=== PATIENT | male | born 1940 | race Caucasian/White ===

== ENCOUNTER 2019-08-12 08:04 | Observation (INO) | payer MEDICARE, SELFPAY ==
[2019-08-12] VITALS (9 sets, daily range): BP systolic 100–219; BP diastolic 50–107; PULSE 51–104; RESP 18–20; TEMP 36.6–37; O2SAT 92–98; BMI 23.3; BMI 22.8
--- NOTE | 2019-08-12 08:09 | RAD_ITS ---
STUDY: X-RAY CHEST REASON FOR EXAM: Male, 79 years old. Syncopal episode. TECHNIQUE: Single AP portable view of the chest. COMPARISON: None. FINDINGS: EKG electrodes are seen. The lungs are clear and expanded. There is no demonstrated pleural abnormality. Normal size heart. Normal mediastinum and florina. Normal visualized pulmonary arteries. There is atherosclerotic calcification of the aortic arch with tortuosity. There are degenerative changes of the visualized thoracic spine. There is degenerative osteoarthritis of the bilateral shoulders. Large hiatal hernia. RAD/Chest 1 View (Portable) IMPRESSION: Large hiatal hernia. Electronically Signed: Curt Finch, at 9:07 EST , Service support ,
--- NOTE | 2019-08-12 08:09 | EKG12_ITS ---
Test Reason : STROKE ALERT Blood Pressure : / mmHG Vent. Rate : 067 BPM Atrial Rate : 067 BPM P-R Int : 122 ms QRS Dur : 102 ms QT Int : 402 ms P-R-T Axes : 066 228 063 degrees QTc Int : 424 ms Normal sinus rhythm Right superior axis deviation Abnormal ECG Confirmed by SABRINA SIN, JULIOCESAR ([id number]), editor publications CLEVE NEVAREZ ([id number]) on 08/15/2019 9:57:18 AM Referred By: Kisha Badillo Confirmed By:TEMO BENNETT MD
--- NOTE | 2019-08-12 08:09 | CT_ITS ---
STUDY: CT BRAIN WITHOUT CONTRAST REASON FOR EXAM: Male, 79 years old. Confusion. History of prior CVA and retinal artery occlusion. RADIATION DOSAGE (If Supplied By Facility): CTDIvol = ( 44.99 ) mGy, DLP = ( 779.24 ) mGycm TECHNIQUE: Transaxial CT imaging of the brain was performed without administration of intravenous contrast material. Individualized dose optimization techniques were used for this CT. COMPARISON: No relevant priors. FINDINGS: Normal soft tissue structures. Normal calvarium. There is mild cerebral atrophy with widening of the extra-axial spaces and ventricular dilatation. There are areas of decreased attenuation within the white matter tracts of the supratentorial brain, consistent with microvascular disease changes. Normal basal ganglia and thalami. Normal brainstem. There is mild cerebellar atrophy. There is no intracranial hemorrhage. There are no findings of an acute ischemic infarction. Atherosclerotic calcification of the cavernous portions of the internal carotid arteries bilaterally. Normal visualized paranasal sinuses. CT/Brain/Head without Contrast IMPRESSION: Chronic involutional changes of the brain. N.B. : The above information has been verbally conveyed by Curt Finch to Dr Sainz on 08/12/2019 08:28:20 (ET). Electronically Signed: Curt Finch, at 8:29 EST , Service support ,
[2019-08-12 08:22] LABS: Absolute Lymphocyte Count 1.38 X10^3/uL (0.83-4.51); Absolute Neutrophil Count 4.8 X10^3/uL (2.0-7.7); Basophil# 0.01 X10^3/uL; Basophil% 0.1 % (0-1); Eosinophil# 0.03 X10^3/uL; Eosinophils% 0.4 % (0-5); Hematocrit 50.2 % (40-54); Hemoglobin 17.2 g/dL (13.0-16.5); Lymphocyte # 1.38 X10^3/ul (4.0); Lymphocyte % 20.6 % (19-41); Mean Corp Hgb Conc 34.3 g/dL (32-36); Mean Corpuscular Volume 96.4 fL (80-94); Mean Platelet Vol. 9.8 fl (6.2-12.0); Monocyte# 0.44 X10^3/uL; Monocyte% 6.6 % (0-10); NRBC Flagged by Analyzer 0 % (0-5); Neutrophil # 4.82 X10^3/uL (2.7-7.7); Platelet Count 248 K/mm3 (150-450); RBC Distribution Width CV 12.9 % (11.6-14.6); RBC Distribution Width SD 45.8 fl (35.1-43.9); Red Blood Count 5.21 M/mm3 (4.6-6.2); White Blood Count 6.7 K/mm3 (4.4-11.0)
[2019-08-12] MEDS: 0.9% Normal Saline 1,000 ML 150 ML IV (08:24)
[2019-08-12 08:31] LABS: Bacteria 0 SEEN /hpf (None Seen); Mucous, Urine 0 SEEN /hpf (<or=2+); Squamous Epithelial Cells - UA 0 SEEN /hpf (0-5); White Blood Cells 0 SEEN /hpf (0-5)
[2019-08-12 08:32] LABS: Color, Urine Yellow (Yellow); Glucose, Dipstick Normal (Normal); Ketone-Dipstick Negative (Negative); Leukocyte Esterase-Dipstick Negative /ul (Negative); Nitrite-Dipstick Negative (Negative); Occult Blood-Urine 10 /ul (Negative); Protein-Dipstick 30 mg/dl (Negative); Urine Bilirubin Dipstick Negative (Negative); Urine Clarity Clear (Clear); Urine Urobilinogen Normal (Normal)
[2019-08-12 08:41] LABS: Anion Gap 12 (5-15); BUN 16 mg/dL (7-18); BUN/Creat Ratio 11.3 RATIO (10-20); Calcium,Total 9.2 mg/dL (8.5-10.1); Chloride 104 mmol/L (98-107); Creatinine, Serum 1.42 mg/dL (0.70-1.30); EST Glomerular Filtration Rate 51 mL/min (>60); Est Glom Filt Rate - Afr Amer 62 mL/min (>60); Estimated Creatinine Clearance 40.73 ml/min; Glucose 129 mg/dL (74-106); Potassium 4.3 mmol/L (3.5-5.1); Sodium Level 140 mmol/L (136-145)
[2019-08-12 08:47] LABS: Red Blood Cells-Urine 0-5 SEEN /hpf (0-5)
--- NOTE | 2019-08-12 08:53 | ED.DCSUM_ITS ---
- ER Visit Summary Date of Service: 08/12/19 Chief Complaint: [Syncope/mental status change] History of Present Illness: The patient is a 79 M [presents to the emergency department via EMS with concern for possible stroke. Events of what happened are unclear other than from what EMS states. Patient apparently was awake and family called the squad because he gasp for air and then had a unresponsive episode. Patient afterwards confused. On arrival patient is awake and alert to person. He does not remember what happened or coming to the emergency department. He denies any focal weakness. He denies any paresthesias. Denies any chest pain. Denies headache. He denies abdominal pain. Patient does have history of TIAs. Initially EMS had concern for possible stroke and a stroke team was called on presentation. Patient was incontinent of urine. No seizure activity noted by EMS.] Physical Examination: [HEENT-PERRLA, EOMI. Cranial nerves II through XII grossly intact. TMs clear. Mucous membranes moist. No adenopathy. Cardiovascular-regular rate and rhythm without murmur or ectopy Lungs-clear to auscultation, chest wall stable without crepitus or subcu emphysema Abdomen-normoactive bowel sounds, soft, nontender, no rebound or rigidity, no peritoneal signs. Neuro shmz-gxkrzs-vv-nose and heel winslow testing within normal limits, negative Romberg, negative pronator, fundi benign. NIH stroke scale was 0. Extremities-intact ?4, normal range of motion, normal pulses, atraumatic] Test Results: [EKG obtained on arrival shows sinus rhythm with a ventricular rate of 67 bpm with no acute ST segment changes. CT scan of the brain showed ch ronic involutional changes otherwise nothing acute. CBC with differential showing a 6.7, hemoglobin 17, hematocrit 50, platelets 248. Chemistries unremarkable. Creatinine is 1.42. Troponin is less than 0.015. Urinalysis normal. Fingerstick blood sugar on arrival was 115.] Emergency Department Course and Treatment: [Results discussed with patient. Kalia triplett is now ANO x3 and mental status changes completely resolved.] Treatment Plan: [Admit] Disposition: [Admit] Impression: [Syncope Mental status change-resolved Renal insufficiency] This note was generated with [employer] (FIG)ation software. It may contain incorrect words, spelling, and punctuation that were not noted in review of the chart prior to signing ED Disposition - Plan for ED Patient: Referrals: Josh Morales MD [Primary Care Provider] -
--- NOTE | 2019-08-12 09:46 | ECHOD_ITS ---
Left Ventricle The estimated ejection fraction is 65 %. Diastolic function is indeterminate. No regional wall motion abnormalities noted. Right Ventricle Normal RV size. Normal systolic function. Atria Normal left atrium. Normal right atrium. No doppler evidence for ASD. Mitral Valve There is no mitral valve stenosis. No mitral valve insufficiency. Tricuspid Valve There is no tricuspid stenosis. Moderate (2+) tricuspid valve insufficiency. Pulmonary artery systolic pressure is 45 mmHg. Aortic Valve Trisinus/trileaflet aortic valve. There is no aortic stenosis. Mild (1+) aortic valve insufficiency. Pulmonic Valve There is no pulmonic valvular stenosis. Trivial pulmonic valve insufficiency. Great Vessels Normal aortic root. Pericardium/Pleural No pericardial effusion. MMode/2D Measurements & Calculations LVIDd: 4.1 cm IVSd: 0.93 cm Ao root diam: 3.6 cm LVIDs: 2.2 cm LVPWd: 0.88 cm RVDd: 3.3 cm FS: 45.8 % LAV(MOD-bp): 39.9 ml LA A4 area: 19.8 cm2 LA dimension(2D): 3.6 cm LAV(MOD-bp) Indexed: 22.4 ml/m2 LAV(MOD-sp2): 24.7 ml LAV(MOD-sp4): 51.8 ml RA A4 area: 16.2 cm2 Time Measurements MV dec time: 0.29 sec Doppler Measurements & Calculations MV E max tong: 75.2 cm/sec Lat Peak E' Tong: 5.5 cm/sec Med Peak E' Tong: 6.5 cm/sec MV A max tong: 111.0 cm/sec E/E' lat: 13.7 E/E' med: 11.6 MV E/A: 0.68 Ao V2 max: 151.2 cm/sec AI max tong: 386.4 cm/sec LV V1 max: 132.7 cm/sec Ao max P.1 mmHg AI max P.7 mmHg LV V1 max P.0 mmHg AI dec slope: 194.3 cm/sec2 AI P1/2t: 582.4 msec PA V2 max: 121.7 cm/sec Interpretation Summary The estimated ejection fraction is 65 %. Diastolic function is indeterminate. Moderate (2+) tricuspid valve insufficiency. Pulmonary artery systolic pressure is 45 mmHg. Mild (1+) aortic valve insufficiency. Ordering Physician: Kisha Badillo Referring Physician: Kisha Badillo
[2019-08-12] MEDS: 0.9% Normal Saline 1,000 ML 125 ML IV ×2 (10:12→18:15)
[2019-08-12 10:21] LABS: Magnesium 2.2 mg/dL (1.6-2.6)
[2019-08-12] MEDS: Enoxaparin 30 MG/0.3 ML Syringe SC (10:40)
[2019-08-12 10:53] LABS: Hemoglobin A1c 5.1 % (4.2-6.3)
--- NOTE | 2019-08-12 12:28 | PCM.HP.STD ---
Problem List (1) Syncope Status: Acute Qualifiers: Syncope type: unspecified Qualified Code(s): R55 - Syncope and collapse (2) Carotid artery disease Status: Chronic Qualifiers: Carotid artery disease type: unspecified Laterality: bilateral Qualified Code(s): I73.9 - Peripheral vascular disease, unspecified (3) TIA (transient ischemic attack) Status: Chronic Qualifiers: Transient cerebral ischemia type: unspecified Qualified Code(s): G45.9 - Transient cerebral ischemic attack, unspecified (4) HLD (hyperlipidemia) Status: Chronic Qualifiers: Hyperlipidemia type: unspecified Qualified Code(s): E78.5 - Hyperlipidemia, unspecified (5) Former tobacco use Status: Resolved (6) Chews tobacco Status: Resolved History of Present Illness Date of Admission: 08/12/19 Chief Complaint: ? Syncopal event, mental status change The patient is a 79 y/o M w/ PMHx: Former Tobacco use, ? COPD, Hx TIA, Carotid disease s/p BL CEA who presents to the [facility] ED on 08/12/19 with history per family of questionable syncopal event, noted to start gasping for air followed by decreased responsiveness with maintained airway and pulse with EMS evaluation with ? concern for mild facial droop but unsure thus upon ED presentation Stroke call initially initiated; however, repeat evaluations with NIH0 with complete return to baseline. Family noted that patient did have loss of bowel or bladder during this event. He denies any recent URI type illness. There was no evident seizure activity during event or at its onset and patient denies having bitten his tongue. Work-up in the ED included T 97.8, heart rate 72, BP initially 167/80 however repeat 103/67, respiratory rate 18, 98% on room air, CBC with WBC 6.7, hemoglobin 17.2, platelet 248 with mild shift but not market, BMP with BUN/creatinine 16/1.42, unclear if insufficiency or new baseline as prior creatinine last noted 2012 1.0, glucose 129, troponin less than 0.015, EKG with sinus rhythm with no acute evidence of ischemia, urinalysis with no evidence of UTI, chest x-ray with a large hiatal hernia noted, CT brain with chronic involutional changes. In the ED given EMS initial concern for possible stroke stroke call was performed however NIH was 0 and patient mental status improved with low suspicion for stroke as etiology per discussion with ED physician with more suspicion towards syncopal events. In the ED patient administered normal saline. Past Medical History Past Medical History (Chronic Problems): Chronic Problems Carotid artery disease (Chronic) TIA (transient ischemic attack) (Chronic) Retinal artery occlusion (Chronic) CAD (coronary artery disease) (Chronic) HLD (hyperlipidemia) (Chronic) Allergies Penicillins Allergy (Verified 09/04/13 11:23) Other Home Medications: Ambulatory Orders Medication Instructions Recorded Aspirin [Aspir 81] 81 mg PO DAILY 08/12/19 Surgical History: herniorrhaphy, - - BL carotid endarterectomy Psychiatric History: No pertinent psych hx Lives: With Family - Patient lives with his son and [id number], , notes ex- lives in their old home but it is on the market for sale. Smoking Status: Former smoker - Patient quit cigarette tobacco usage in 1985 as well as chew tobacco usage in 1985 with prior to this at least 1 pack/day cigarette tobacco usage and 1 can daily of tobacco chew. Tobacco Use: Non-smoker Alcohol: Occasional - Patient notes he will occasionally make homemade wine but drinks rarely-occasionally. Drugs: None - *Family History Maternal History Items: - - Patient denies any market maternal or paternal family history including heart disease, diabetes or cancer. Paternal History Items: - - Patient denies any market maternal or paternal family history including heart disease, diabetes or cancer. Review of Systems Constitutional: Reports: Fatigue. Denies: Anorexia, Chills, Fever, Malaise, Weakness, Weight Change HEENT: Denies: Head Aches, Sinus Congestion, Sinus Drainage Cardiovascular: Reports: Syncope. Denies: Chest Pain, Chest Pressure, Chest Tightness, Light Headedness, Orthopnea, Palpitations Respiratory: Denies: Cough, Shortness of Breath, Shortness of breath at rest, Shortness of breath upon exertion, Sputum production Gastrointestinal: Reports: - - Urinary and stool incontinence during questionable syncopal event. Denies: Abdominal Pain, Nausea, Vomiting Genitourinary: Reports: - - Urinary and stool incontinence during questionable syncopal event. Denies: Dysuria Musculoskeletal: Reports: Joint Pain. Denies: Joint Tenderness Skin: Denies: Rash, Wounds Neurological: Reports: - - Questionable syncopal event. Did have loss of bowel bladder but family denied any seizure activity.. Denies: Focal weakness, Numbness, Tingling Psychiatric: Denies: Anxiety, Depression, Homicidal Ideations, Suicidal Ideations Hematologic/ Lymphatic: Reports: Easy Bruising, Easy Bleeding VTE Information - Inpt Only VTE Present on Admission: No VTE Mechan Device Prophylaxis: SCD's VTE Pharm Prophylaxis ordered?: Yes Patient Problems: Active and Suspected Problems Syncope (Acute) Subjective: Seated upright in the PCU bed, notes feeling well, denies any acute complaints, notes not sure what happened but feels his normal baseline, no recent illnesses. Objective: Physical Examination: General: awake, alert, oriented x 3, very hard of hearing, remains cooperative, seated upright in the PCU bed in no apparent distress. Skin: normal color, turgor, no icterus, cyanosis. HEENT: AT/NC, EOMI, PERRLA, mildly dry MM, no carotid bruits or JVD noted. Lungs: Diminished BS BL, > bases, normal effort, no rales, ronchi or wheezing. Heart: Regular rate and rhythm; no gallop, rub audible. Abdomen: soft, NTTP, ND, normal BS, no HSM. Extremities: no cyanosis, clubbing, or edema. Neurological: patient awake, alert, oriented x 3; hard of hearing as noted; cognitive function appears intact but unclear baseline; pupils equally reactive to light and accomodation; cranial nerves II-XII grossly normal, moving all 4 extremities, no focal deficits, strength mildly to moderately globally decreased. Psychiatric: affect appears normal, talkative, no acute evidence of depressive or anxiety feelings. - Physical Exam Vitals/I&O's: Vital Signs Temp Pulse Resp BP Pulse Ox 97.8 F 55 L 18 136/59 H 98 08/12/19 09:50 08/12/19 10:21 08/12/19 09:50 08/12/19 10:21 08/12/19 09:50 Oxygen Delivery Method Room Air Weight: 145 lb 11.609 oz Body Mass Index (BMI) 22.8 Finger Stick Blood Glucose 115 Orthostatic Vital Signs Start: 08/12/19 10:11 Freq: q24h Status: Active Protocol: Activity Type Activity Date Activity User E-Sign Co-Sign Detail Recorded Client Recorded Date Recorded By Document 08/12/19 10:21 CO [id number] 08/12/19 10:32 KS 08/12/19 10:21 Orthostatic Vitals Standing -Blood Pressure (90/60-120/80) 219/107 H -Extremity Use Left Arm -Pulse Rate (60-100) 70 Sitting -Blood Pressure (90/60-120/80) 190/81 H -Extremity Use Left Arm -Pulse Rate (60-100) 51 L Lying -Blood Pressure (90/60-120/80) 136/59 H -Extremity Use Left Arm -Pulse Rate (60-100) 55 L Intake and Output for Last 24 Hours 08/10/19 08/11/19 08/12/19 23:59 23:59 23:59 Intake Total 425 / 425 Balance 425 / 425 Laboratory Results 08/12/19 08:10: WBC 6.7, RBC 5.21, Hgb 17.2 H, Hct 50.2, MCV 96.4 H, MCH 33.0 H, MCHC 34.3, RDW Std Deviation 45.8 H, RDW Coeff of Omar 12.9, Plt Count 248, MPV 9.8, Immature Gran % (Auto) 0.300, Neut % (Auto) 72.0 H, Lymph % (Auto) 20.6, [place] % (Auto) 6.6, Eos % (Auto) 0.4, Baso % (Auto) 0.1, Absolute Neuts (auto) 4.8, Absolute Lymphs (auto) 1.38, Nucleated RBC % 0 08/12/19 08:10: Sodium 140, Potassium 4.3, Chloride 104, Carbon Dioxide 24.0, Anion Gap 12, BUN 16, Creatinine 1.42 H, Estim Creat Clear Calc 40.73, Est GFR (MDRD) Af Amer 62, Est GFR (MDRD) Non-Af 51 L, BUN/Creatinine Ratio 11.3, Glucose 129 H, Calcium 9.2, Troponin I < 0.015 08/12/19 08:10: Hemoglobin A1c 5.1 08/12/19 08:10: Magnesium 2.2 08/12/19 08:28: Urine Color Yellow, Urine Clarity Clear, Urine pH 6.0, Ur Specific [place] 1.010, Urine Protein 30 H, Urine Glucose (UA) Normal, Urine Ketones Negative, Urine Occult Blood 10 H, Urine Nitrite Negative, Urine Bilirubin Negative, Urine Urobilinogen Normal, Ur Leukocyte Esterase Negative, Urine RBC 0-5 SEEN, Urine WBC 0 SEEN, Ur Squamous Epith Cells 0 SEEN, Urine Bacteria 0 SEEN, Urine Mucus 0 SEEN 08/12/19 10:48: Troponin I < 0.015 Current Medications Acetaminophen (Tylenol) 650 mg PO Q6H PRN PRN PRN Reason: Non-cardiac pain (mod-severe) Al Hydroxide/Mg Hydroxide (Mylanta Ii) 15 - 30 ml PO Q4H PRN PRN PRN Reason: INDIGESTION Albuterol Sulfate (Ventolin Aerosols) 2.5 mg INHALATION Q2H PRN PRN PRN Reason: dyspnea, wheezing Aspirin (Ecotrin) 81 mg PO DAILY [facility] Last Admin: 08/12/19 10:35 Dose: Not Given Documented by: Dextrose (D50w Syringe) 0 gm IV X1 PRN; Protocol PRN Reason: Hypoglycemia Enoxaparin Sodium (Lovenox) 30 mg SC DAILY [facility] Last Admin: 08/12/19 10:40 Dose: 30 mg Documented by: Glucagon () 1 mg IM .X1 PRN PRN Reason: Hypoglycemia Guaifenesin (Robitussin) 20 ml PO Q4H PRN PRN PRN Reason: COUGH Hydralazine HCl (Apresoline Iv) 10 mg IV Q4H PRN PRN PRN Reason: SBP > 160 Sodium Chloride () 1,000 mls @ 125 mls/hr IV .Q8H [facility] Last Admin: 08/12/19 10:12 Dose: 125 mls/hr Documented by: Magnesium Hydroxide (Milk Of Magnesia) 30 ml PO DAILY PRN PRN Reason: Constipation Melatonin (Melatonin) 3 mg PO QHS PRN PRN PRN Reason: INSOMNIA Morphine Sulfate () 1 - 2 mg IV Q4H PRN PRN PRN Reason: Pain Score 1-10/10 Nitroglycerin (Nitrostat) 0.4 mg SUBLINGUAL Q5M PRN PRN Reason: CARDIAC/CHEST PAIN Ondansetron HCl (Zofran) 4 mg IV Q8H PRN PRN PRN Reason: NAUSEA/VOMITING Sodium Chloride () 10 - 40 ml IV UD PRN PRN Reason: SALINE FLUSH Throat Lozenges (Cepacol Sore Throat Lozenge) 1 lozenge MUCOUS MEM Q2H PRN PRN PRN Reason: Sore Throat/Cough Assessment/Plan All Active Problems Syncope (Acute) Former tobacco use (Resolved) Chews tobacco (Resolved) The patient is a 79 y/o M w/ PMHx: Former Tobacco use, ? COPD, Hx TIA, Carotid disease s/p BL CEA who presents to the [facility] ED on 08/12/19 with history per family of questionable syncopal event, noted to start gasping for air followed by decreased responsiveness with maintained airway and pulse with EMS evaluation with ? concern for mild facial droop but unsure thus upon ED presentation Stroke call initially initiated; however, repeat evaluations with NIH0 with complete return to baseline. 1. Possible Syncopal Event: Poor historian, concurrent loss of bowel and bladder but no witnessed seizure activity, EKG in ED w/ sinus rhythm without evidence of acute ischemia, CXR w/ no acute cardiopulmonary findings, CT head unremarkable, initial trop normal. Will admit to PCU, place on a monitored bed to assure no acute myocardial infarction with serial cardiac enzymes and EKGs, maintain on fall precautions, obtain admission orthostatic and AM orthostatic VS and increase hydration if appropriate, obtain ECHO and carotid US given prior history. PT/OT/CM consultation to ascertain stability and discharge needs. Given EMS initial concerns although again, felt not CVA concern upon ED presentation per ED physician, will obtain MRI Brain. 2. Elevated BP without hypertensive diagnosis: Patient upon ED presentation with BP 167/80, repeat 103/65, will continue to closely monitor and if regimen addition appropriate will initiate. 3. ? CKD stage III versus Acute Renal Insufficiency: Admission BUN/Cr 16/1.42, prior noted 1.0 but from 2012 thus could be chronic component, hydrating, repeat BMP in AM. 4. Hx TIA: Maintain on ASA, BP in the ED initially 167/80, repeat low normal, will hold on regimen addition, not on statin. 5. Former tobacco, chew tobacco use: Encouraged continued cessation, given history would not be surprised if underlying COPD. 6. Suspected COPD: Encouraged outpatient PCP follow-up with PFT consideration but not markedly symptomatic per his report, head of bed, I-S, PRN albuterol. 7. Carotid disease: Status post bilateral CEA, maintain on aspirin, not on statin. 8. DVT Prophylaxis: SCDs, lovenox. 9. 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 He notes that he was recently . Discussed consideration of setting this up with his son as he is now living with his son and [id number]. Discussed CODE status at length including difference between FULL code, DNR-CCA and DNR-CC status. Following discussions about the differences in these status, requested full code status. Advanced Care Planning Face to Face Time: 16 minutes. Code Visit OBSV E&M: 94153 Initial observation care L3 Procedures: 30000 Advncd Care Plan 30 Min
--- NOTE | 2019-08-12 12:35 | CDU_ITS ---
Reason For Study: Syncope Rt. Velocities/BP Lt. Velocities/BP Prox CCA 64.3/12.1 cm/sec. Prox CCA 104.7/11.5 cm/sec. Mid CCA 48.6/10.8 cm/sec. Mid CCA 72.8/9 cm/sec. Dist CCA 45.4/6.9 cm/sec. Dist CCA 47.6/9.1 cm/sec. Prox ICA 48.7/10.2 cm/sec. Prox ICA 45.6/8.8 cm/sec. Mid ICA 104.7/24.5 cm/sec. Mid ICA 83.4/18.2 cm/sec. Dist ICA 91.5/21.2 cm/sec. Dist ICA 87.1/19 cm/sec. Rt. ICA/CCA = 2.2. Lt. ICA/CCA = 1.20. Prox ECA 93.7 cm/sec. Prox ECA 92.5 cm/sec. Rt. Vert. 40.4/11.6 cm/sec. Lt. Vert. 42.1/11.3 cm/sec. Right Extracranial There is homogeneous, smooth atherosclerotic plaque noted in the right common carotid artery. There is intimal thickening but no significant atherosclerotic plaque noted in the right internal carotid artery. The right internal carotid artery is very tortuous. There is homogeneous, smooth atherosclerotic plaque noted in the right external carotid artery. Antegrade flow is noted in the right vertebral artery. Left Extracranial There is homogeneous, smooth atherosclerotic plaque noted in the left common carotid artery. There is homogeneous, smooth atherosclerotic plaque noted in the left internal carotid artery. There is no significant atherosclerotic plaque noted in the left external carotid artery. The left external carotid artery is not well visualized. Antegrade flow is noted in the left vertebral artery. Procedure Carotid Duplex 31717. Exam performed portable in patient room. Interpretation Summary Post operative changes right carotid bulb and proximal internal carotid <50% stenosis right internal carotid <50% stenosis right external carotid Postoperative changes left carotid bulb and proximal internal carotid <50% stenosis left internal carotid <50% stenosis left external carotid Patent and antegrade vertebrals bilaterally Ordering Physician: Kisha Badillo Referring Physician: Josh Morales Performed By: Quynh Anthony RVT
--- NOTE | 2019-08-12 14:27 | MRI_ITS ---
STUDY: MRI BRAIN WITHOUT CONTRAST REASON FOR EXAM: Male, 79 years old. Confusion and mental status change TECHNIQUE: Standardized multiplanar fat and water weighted pulse sequences were obtained. COMPARISON: CT of the brain August 12, 2019 MRI of the brain September 05, 2013 report only FINDINGS: Moderate predominantly frontal temporal atrophy and minor periventricular white matter ischemic changes without evidence for acute infarct.. Normal bilateral basal ganglia. Normal thalami. There is no extra-axial fluid accumulation. Normal flow voids within the major intracranial circulation suggesting patency by spin echo criteria. Normal sella turcica, pituitary gland, infundibular stalk, optic chiasm and hypothalamus. Normal tectal plate and pineal gland. Normal midbrain, oscar and medulla. Normal cerebellum. Normal basal cisterns. Normal bilateral temporal bones. Normal bilateral internal auditory canals. Fluid signal noted within the right mastoid air cells consistent with inflammatory changes No demonstrated orbital abnormality, within the constraints of a routine brain study. Mucosal thickening of the ethmoid sinuses. Normal calvarium and skull base. Normal visualized soft tissue structures. Normal visualized upper cervical spine. MRI/Brain without Contrast IMPRESSION: Moderate predominantly frontal temporal atrophy and minor periventricular white matter ischemic change without evidence for acute infarct. Electronically Signed: Jorge Rome MD at 18:36 EST , Service support ,
[2019-08-13] MEDS: 0.9% Normal Saline 1,000 ML 125 ML IV (02:22)
[2019-08-13 02:58] VITALS: PULSE 46
[2019-08-13 04:20] VITALS: BP 114/51; PULSE 53; RESP 18; TEMP 36.5; O2SAT 96
[2019-08-13 04:23] VITALS: BP 108/46; BP 114/51; BP 144/84; PULSE 53; PULSE 56; PULSE 60
[2019-08-13 05:32] LABS: Absolute Lymphocyte Count 1.09 X10^3/uL (0.83-4.51); Absolute Neutrophil Count 5.7 X10^3/uL (2.0-7.7); Basophil# 0.01 X10^3/uL; Basophil% 0.1 % (0-1); Eosinophil# 0.01 X10^3/uL; Eosinophils% 0.1 % (0-5); Hematocrit 41.4 % (40-54); Hemoglobin 14.2 g/dL (13.0-16.5); Lymphocyte # 1.09 X10^3/ul (4.0); Lymphocyte % 14.8 % (19-41); Mean Corp Hgb Conc 34.3 g/dL (32-36); Mean Corpuscular Volume 96.3 fL (80-94); Mean Platelet Vol. 9.8 fl (6.2-12.0); Monocyte# 0.58 X10^3/uL; Monocyte% 7.9 % (0-10); NRBC Flagged by Analyzer 0 % (0-5); Neutrophil # 5.67 X10^3/uL (2.7-7.7); Neutrophil % 76.8 % (47-70); Platelet Count 198 K/mm3 (150-450); RBC Distribution Width CV 12.7 % (11.6-14.6); RBC Distribution Width SD 44.7 fl (35.1-43.9); White Blood Count 7.4 K/mm3 (4.4-11.0)
[2019-08-13 05:47] LABS: Anion Gap 4 (5-15); BUN 14 mg/dL (7-18); BUN/Creat Ratio 14.1 RATIO (10-20); Chloride 111 mmol/L (98-107); Creatinine, Serum 0.99 mg/dL (0.70-1.30); EST Glomerular Filtration Rate 78 mL/min (>60); Est Glom Filt Rate - Afr Amer 94 mL/min (>60); Estimated Creatinine Clearance 58.42 ml/min; Glucose 98 mg/dL (74-106); Potassium 3.5 mmol/L (3.5-5.1); Sodium Level 141 mmol/L (136-145)
[2019-08-13 07:03] VITALS: PULSE 48
[2019-08-13 08:59] VITALS: O2SAT 95
[2019-08-13 09:40] VITALS: BP 110/67; PULSE 55; RESP 18; TEMP 36.8; O2SAT 96
[2019-08-13] MEDS: Aspirin E.C. 81 MG Tablet PO (09:41)
[2019-08-13] MEDS: Enoxaparin 30 MG/0.3 ML Syringe SC (09:42)
[2019-08-13 10:06] LABS: Bedside Glucose 115 mg/dL (70-110)
--- NOTE | 2019-08-13 10:10 | PCM.DC ---
- Discharge Diagnoses Current Active Problems: Current Active and Chronic Problems 1. Encephalopathy, Acute, Metabolic secondary to Suspected Syncopal Event w/ Orthostasis, MARILOU 2. Elevated BP without hypertensive diagnosis, normalized (low normal) 3. Acute Kidney Injury secondary to likely hypovolemia, orthostasis present as noted #1, resolved 4. Hx TIA 5. Former tobacco, chew tobacco use 6. Suspected COPD 7. Carotid disease You will use the following diet at home:: Cardiac Your food should be the consistency of: Regular Your liquids should be the consistency of: Regular/Thin Discharge Activity: Return to Normal Activity, - - Maintain appropriate oral hydration. May resume sexual activity in: No Restrictions Weight Bearing Status: Weight bearing as tolerated Call your doctor if you observe: Fever of 101 or Higher, Inability to urinate, Inability to have a bowel movement, Shortness of breath, Dizziness, Fainting spells, Chest pain, Uncontrolled pain Instructions: What Is Syncope?, Causes of Syncope, Treating Syncope: Prevention, Dehydration Additional Instructions: During the admission you were evaluated for syncope. You have history of TIA and bilateral carotid disease therefore low dose statin therapy was added. Please have outpatient liver function assessment in the future given this addition. If you have muscle aches the dose could be decreased further. Allergies/Adverse Reactions: Allergies Penicillins Allergy (Verified 09/04/13 11:23) Other Medications to take at Discharge Aspirin [Aspir 81] 81 mg PO DAILY 08/12/19 Atorvastatin Calcium [Lipitor] 20 mg PO QHS #30 tab 08/13/19 The following prescriptions were given: Atorvastatin Calcium [Lipitor] 20 mg PO QHS #30 tab Transmission Status: Pending to [facility] Primary Care Physician: Josh Morales MD [Primary Care Provider] - Please follow up with your Primary Care Physician in: Follow-up within 3-5 days to review admission. Test Results: Test results from this visit will be discussed in further detail at your follow-up appointment, if applicable. Proposed Discharge Date: 08/13/19
--- NOTE | 2019-08-13 10:18 | PCM.DC.SUM ---
Discharge Date and Diagnosis - Problem List Patient Problems: Active and Suspected Problems Syncope (Acute) Date of Admission: 08/12/19 Date of Discharge: 08/13/19 - Primary Discharge Diagnosis Active and Suspected Problems 1. Encephalopathy, Acute, Metabolic secondary to Suspected Syncopal Event w/ Orthostasis, MARILOU 2. Elevated BP without hypertensive diagnosis, normalized (low normal) 3. Acute Kidney Injury secondary to likely hypovolemia, orthostasis present as noted #1, resolved 4. Hx TIA 5. Former tobacco, chew tobacco use 6. Suspected COPD 7. Carotid disease - Secondary Discharge Diagnosis Chronic Problems Carotid artery disease (Chronic) TIA (transient ischemic attack) (Chronic) Retinal artery occlusion (Chronic) CAD (coronary artery disease) (Chronic) HLD (hyperlipidemia) (Chronic) Hospital Course and Treatment Operations: None Procedures: 2-D Echocardiogram, EKG Summary of Care Provided: The patient is a 79 y/o M w/ PMHx: Former Tobacco use, ? COPD, Hx TIA, Carotid disease s/p BL CEA who presented to the [facility] ED on 08/12/19 with history per family of questionable syncopal event, noted to start gasping for air followed by decreased responsiveness with maintained airway and pulse with EMS evaluation with ? concern for mild facial droop but unsure thus upon ED presentation Stroke call initially initiated; however, repeat evaluations with NIH0 with complete return to baseline. Family noted that patient did have loss of bowel or bladder during this event. He denied any recent URI type illness. There was no evident seizure activity during event or at its onset and patient denies having bitten his tongue. Work-up in the ED included T 97.8, heart rate 72, BP initially 167/80 however repeat 103/67, respiratory rate 18, 98% on room air, CBC with WBC 6.7, hemoglobin 17.2, platelet 248 with mild shift but not market, BMP with BUN/creatinine 16/1.42, unclear if insufficiency or new baseline as prior creatinine last noted 2012 1.0, glucose 129, troponin less than 0.015, EKG with sinus rhythm with no acute evidence of ischemia, urinalysis with no evidence of UTI, chest x-ray with a large hiatal hernia noted, CT brain with chronic involutional changes. In the ED given EMS initial concern for possible stroke stroke call was performed however NIH was 0 and patient mental status improved with low suspicion for stroke as etiology per discussion with ED physician with more suspicion towards syncopal events. In the ED patient administered normal saline. The patient was admitted to the PCU, maintain on monitor without events with unremarkable serial enzymes and EKGs, maintain on fall precautions, admission orthostatic vitals notably positive with continued hydration and repeat 08/13/2019 a.m. notably improved, echocardiogram obtained with noted EF 65%, diastolic function indeterminate, moderate TBI, PASP 45 mmHg, mild TIRSO, carotid ultrasound with evidence of postoperative changes bilaterally, less than 50% stenosis bilaterally with noted patency and antegrade vertebrals bilaterally, MRI of the brain with moderate predominantly frontal temporal atrophy and minor periventricular white matter ischemic changes with no evidence of acute infarct. During the admission given history of TIA as well as carotid disease added low-dose statin therapy with recommended PCP reevaluation of liver function studies in the future. Given patient clinical improvement following therapy evaluations for home-going needs patient discharged home in improved stable condition with recommended follow-up with PCP within 3 to 5 days. Attempted to contact his family to update on his current work-up and clinical status but cell phone noted for his son was actually in patient's possession and alternate number had no answer. DAY OF DISCHARGE PROGRESS NOTE: Subjective: Patient without acute event overnight per self and nursing report. Suspect patient does have some underlying chronic memory impairment which seem to increase overnight but improved and baseline this morning. Patient with no further syncopal events or notable changes. Reviewed work-up which has been unremarkable including echo, carotid ultrasound, MRI brain aside from positive orthostatic vital signs which have clinically improved with IV fluids. Also discussed renal function improvement. Patient denies fever, chills, nausea, emesis, abdominal pain, chest pain or dyspnea. Patient agreeable to discharge to home as noted. Patient will be discharged with follow-up with primary care physician within 3-5 days. Objective: 0.3, heart rate 55, BP 110/67, respiratory rate 18, 96% on room air. Physical Examination: General: awake, alert, oriented x 3, hard of hearing, remains cooperative, upright in bed, no acute distress, eager for discharge she notes. Skin: normal color, turgor, no icterus, cyanosis. HEENT: AT/NC, EOMI, PERRLA, improved MMM. Lungs: Diminished BS BL, > bases, normal effort, no rales, ronchi or wheezing. Heart: Regular rate and rhythm; no gallop, rub audible. Abdomen: soft, NTTP, ND, normal BS. Extremities: no cyanosis, clubbing, or edema. Neurological: patient awake, alert, oriented x 3; hard of hearing as noted; cognitive function appears intact but unclear baseline; pupils equally reactive to light and accomodation; cranial nerves II-XII grossly normal, moving all 4 extremities, no focal deficits, strength mildly to moderately globally decreased. Psychiatric: affect appears normal, eager for discharge, no acute evidence of depressive or anxiety feelings. Assessment and Plan: Please see hospital summary above. Patient Problems: Active and Suspected Problems Syncope (Acute) - Physical Exam Vitals/I&O's: Vital Signs Temp Pulse Resp BP Pulse Ox 98.3 F 55 L 18 110/67 96 08/13/19 09:40 08/13/19 09:40 08/13/19 09:40 08/13/19 09:40 08/13/19 09:40 Oxygen Delivery Method Room Air Weight: 145 lb 11.609 oz Body Mass Index (BMI) 22.8 Finger Stick Blood Glucose 115 Orthostatic Vital Signs Start: 08/12/19 10:11 Freq: q24h Status: Active Protocol: Activity Type Activity Date Activity User E-Sign Co-Sign Detail Recorded Client Recorded Date Recorded By Document 08/13/19 04:23 [id number] 08/13/19 04:24 CS 08/13/19 04:23 Orthostatic Vitals Standing -Blood Pressure (90/60-120/80) 144/84 H -Extremity Use Right Arm -Pulse Rate (60-100) 60 Sitting -Blood Pressure (90/60-120/80) 108/46 L -Extremity Use Right Arm -Pulse Rate (60-100) 56 L Lying -Blood Pressure (90/60-120/80) 114/51 L -Extremity Use Right Arm -Pulse Rate (60-100) 53 L Intake and Output for Last 24 Hours 08/11/19 08/12/19 08/13/19 23:59 23:59 23:59 Intake Total 2403.33 / 2403.33 795.84 / 795.84 Output Total 150 / 150 Balance 2253.33 / 2253.33 795.84 / 795.84 Laboratory Results 08/12/19 08:06: POC Glucose 115 H 08/12/19 08:10: Hemoglobin A1c 5.1 08/12/19 08:10: Magnesium 2.2 08/12/19 10:48: Troponin I < 0.015 08/12/19 14:40: Troponin I < 0.015 08/13/19 05:15: WBC 7.4, RBC 4.30 L, Hgb 14.2, Hct 41.4, MCV 96.3 H, MCH 33.0 H, MCHC 34.3, RDW Std Deviation 44.7 H, RDW Coeff of Omar 12.7, Plt Count 198, MPV 9.8, Immature Gran % (Auto) 0.300, Neut % (Auto) 76.8 H, Lymph % (Auto) 14.8 L, [place] % (Auto) 7.9, Eos % (Auto) 0.1, Baso % (Auto) 0.1, Absolute Neuts (auto) 5.7, Absolute Lymphs (auto) 1.09, Nucleated RBC % 0, Differential Comment Not Reportable 08/13/19 05:15: Sodium 141, Potassium 3.5, Chloride 111 H, Carbon Dioxide 26.0, Anion Gap 4 L, BUN 14, Creatinine 0.99, Estim Creat Clear Calc 58.42, Est GFR (MDRD) Af Amer 94, Est GFR (MDRD) Non-Af 78, BUN/Creatinine Ratio 14.1, Glucose 98, Calcium 8.0 L Current Medications Acetaminophen (Tylenol) 650 mg PO Q6H PRN PRN PRN Reason: Non-cardiac pain (mod-severe) Al Hydroxide/Mg Hydroxide (Mylanta Ii) 15 - 30 ml PO Q4H PRN PRN PRN Reason: INDIGESTION Albuterol Sulfate (Ventolin Aerosols) 2.5 mg INHALATION Q2H PRN PRN PRN Reason: dyspnea, wheezing Aspirin (Ecotrin) 81 mg PO DAILY [facility] Last Admin: 08/13/19 09:41 Dose: 81 mg Documented by: Dextrose (D50w Syringe) 0 gm IV X1 PRN; Protocol PRN Reason: Hypoglycemia Enoxaparin Sodium (Lovenox) 30 mg SC DAILY [facility] Last Admin: 08/13/19 09:42 Dose: 30 mg Documented by: Glucagon () 1 mg IM .X1 PRN PRN Reason: Hypoglycemia Guaifenesin (Robitussin) 20 ml PO Q4H PRN PRN PRN Reason: COUGH Hydralazine HCl (Apresoline Iv) 10 mg IV Q4H PRN PRN PRN Reason: SBP > 160 Sodium Chloride () 1,000 mls @ 125 mls/hr IV .Q8H [facility] Last Infusion: 08/13/19 06:00 Dose: 125 mls/hr Documented by: Magnesium Hydroxide (Milk Of Magnesia) 30 ml PO DAILY PRN PRN Reason: Constipation Melatonin (Melatonin) 3 mg PO QHS PRN PRN PRN Reason: INSOMNIA Morphine Sulfate () 1 - 2 mg IV Q4H PRN PRN PRN Reason: Pain Score 1-10/10 Nitroglycerin (Nitrostat) 0.4 mg SUBLINGUAL Q5M PRN PRN Reason: CARDIAC/CHEST PAIN Ondansetron HCl (Zofran) 4 mg IV Q8H PRN PRN PRN Reason: NAUSEA/VOMITING Sodium Chloride () 10 - 40 ml IV UD PRN PRN Reason: SALINE FLUSH Throat Lozenges (Cepacol Sore Throat Lozenge) 1 lozenge MUCOUS MEM Q2H PRN PRN PRN Reason: Sore Throat/Cough Discharge Activity: Return to Normal Activity, - - Maintain appropriate oral hydration. May resume sexual activity in: No Restrictions Weight Bearing Status: Weight bearing as tolerated Call your doctor if you observe: Fever of 101 or Higher, Inability to urinate, Inability to have a bowel movement, Shortness of breath, Dizziness, Fainting spells, Chest pain, Uncontrolled pain Home Medications: Medications to take at Discharge Aspirin [Aspir 81] 81 mg PO DAILY 08/12/19 Atorvastatin Calcium [Lipitor] 20 mg PO QHS #30 tab 08/13/19 Following Prescrptions Were Given to Patient: Atorvastatin Calcium [Lipitor] 20 mg PO QHS #30 tab Transmission Status: Pending to [facility] Primary Care Physician: Josh Morales MD [Primary Care Provider] - Please follow up with your Primary Care Physician in: Follow-up within 3-5 days to review admission. Patient Instructions: What Is Syncope?, Causes of Syncope, Treating Syncope: Prevention, Dehydration Disposition: Home with Home Health Minutes spent on discharge:: 35 Patient Condition:: Fair Medical Necessity - Tobacco Use Smoking Status: Former smoker - Patient quit cigarette tobacco usage in 1985 as well as chew tobacco usage in 1985 with prior to this at least 1 pack/day cigarette tobacco usage and 1 can daily of tobacco chew. Tobacco Use: Non-smoker Meaningful Use Info Meaningful Use Diagnoses (Choose all that apply): None applicable Code Visit OBSV E&M: 19996 Observation care discharge
--- NOTE | 2019-08-13 11:11 | PHA.DC.MC ---
Pharmacy Service has performed discharge medication reconciliation and counseling for this patient. 1. ATORVASTATIN 20MG PO QHS The patient's discharge medication list was reviewed for discrepancies and discrepancies were resolved. Home Medications Aspirin [Aspir 81] 81 mg PO DAILY 08/12/19 Atorvastatin Calcium [Lipitor] 20 mg PO QHS #30 tab 08/13/19 The patient was counseled on the following discharge medications and changes in medications for homegoing were reviewed. The Reason for Use, instructions for use, and potential side effects were reviewed for all new medications. The patient's questions regarding all of their medications were answered. The patient was able to verbally demonstrate an understanding of their discharge medications.
--- NOTE | 2019-08-13 11:30 | CASEMGMT ---
This RN NIYA to room with GALLEGOS form at this time, explanation done-pt voices understanding, and signs GALLEGOS form at this time. Original to chart and copy to pt at this time. Pt voices no further questions/concerns/needs at this time. SStaten IVAN NÚÑEZ
== END 2019-08-13 10:14 | disposition home or self-care (01) ==
LOC: ED 09:20 → PCU 09:23
PROVIDERS: Emergency Medicine; Admitting Provider Family Medicine; Emergency Provider Emergency Medicine; Family Provider Internal Medicine; PCP Internal Medicine; Referring Provider Family Medicine; Visit Provider Family Medicine
DX: R55 Syncope and collapse (principal); N17.9 Acute kidney failure, unspecified; G93.40 Encephalopathy, unspecified; R03.0 Elevated blood-pressure reading, without diagnosis of hypertension; E78.5 Hyperlipidemia, unspecified; I25.10 Atherosclerotic heart disease of native coronary artery without angina pectoris; Z23 Encounter for immunization; I73.9 Peripheral vascular disease, unspecified; R15.9 Full incontinence of feces; R32 Unspecified urinary incontinence; I65.23 Occlusion and stenosis of bilateral carotid arteries; R29.700 NIHSS score 0; I08.2 Rheumatic disorders of both aortic and tricuspid valves; R94.31 Abnormal electrocardiogram [ECG] [EKG]; R41.82 Altered mental status, unspecified; Z87.891 Personal history of nicotine dependence; Z86.73 Personal history of transient ischemic attack (TIA), and cerebral infarction without residual deficits; Z79.82 Long term (current) use of aspirin
CPT/HCPCS: 36415; 70450; 70551; 71045; 80048; 81001; 82962; 83036; 83735; 84484; 85025; 93005; 93306; 93880; 96360; 96361; 96372; 97162; 97166; 97530; 99218; 99285; G0008; J7030; 90686; A4216; G0378

== ENCOUNTER → 2019-10-21 11:16 | Outpatient (CLI) | payer BC, SELFPAY ==
[2019-08-12 09:58] VITALS: BMI 22.8
== END ==
PROVIDERS: Visit Provider Family Medicine Geriatric Medicine
DX: F03.90 Unspecified dementia, unspecified severity, without behavioral disturbance, psychotic disturbance, mood disturbance, and anxiety (principal); R53.83 Other fatigue

== ENCOUNTER → 2019-11-01 08:16 | Outpatient (CLI) | payer MEDICARE, SELFPAY ==
[2019-08-12 09:58] VITALS: BMI 22.8
--- NOTE | 2019-11-01 08:21 | US_ITS ---
PROCEDURES: ULTRASOUND AORTA REASON FOR EXAM: Male, 79 years old. AAA SCREENING TECHNIQUE: Ultrasound evaluation of the aorta was performed with real-time and static griggs-scale imaging. COMPARISON: None. FINDINGS: There is no elongation or tortuosity of the abdominal aorta. Aorta measures: Proximal 2.3 cm. Middle 1.7 cm. Distal 1.5 cm. Aorta measure transversely: Proximal 2.6 cm. Middle 2.2 cm. Distal 1.7 cm. No aneurysm is identified Right iliac artery measures: 1.3 cm. Right iliac artery measure transversely: 1.3 cm. No aneurysm is identified Left iliac artery measures: 1.1 cm. Left iliac artery measure transversely: 1.0 cm. No aneurysm is identified There is no demonstrated aneurysm.. Arteriosclerotic plaque is noted throughout the abdominal aorta. US/Aorta IMPRESSION: Arteriosclerotic plaque is noted throughout the abdominal aorta with no evidence of an aortic aneurysm. Electronically Signed: Brandon Escobar, at 16:40 EST Tel , Service support ,
== END ==
PROVIDERS: PCP Family Medicine Geriatric Medicine; Referring Provider Family Medicine Geriatric Medicine; Visit Provider Family Medicine Geriatric Medicine
DX: I71.4 Abdominal aortic aneurysm, without rupture (principal); Z13.89 Encounter for screening for other disorder
CPT/HCPCS: 76775

== ENCOUNTER 2020-02-06 11:39 | Inpatient (IN) | payer MEDICARE, SELFPAY ==
[2019-08-12 09:58] VITALS: BMI 22.8
[2020-02-06] VITALS (8 sets, daily range): BP systolic 112–152; BP diastolic 53–83; PULSE 44–71; RESP 16–21; TEMP 36.2–36.8; O2SAT 93–98; BMI 24.5; BMI 24.1
--- NOTE | 2020-02-06 11:53 | CT_ITS ---
STUDY: CT BRAIN WITHOUT CONTRAST REASON FOR EXAM: Male, 80 years old. Altered mental status, possible seizure today, post ictal and then agitated and confused. Hx seizures. RADIATION DOSAGE (If Supplied By Facility): CTDIvol = ( 44.99 ) mGy, DLP = ( 779.24 ) mGycm TECHNIQUE: Transaxial CT imaging of the brain was performed without administration of intravenous contrast material. Individualized dose optimization techniques were used for this CT. COMPARISON: None. FINDINGS: There is cerebral atrophy with widening of the extra-axial spaces and ventricular dilatation. There are areas of decreased attenuation within the white matter tracts of the supratentorial brain, consistent with microvascular disease changes. There is no intracranial hemorrhage. There are no findings of an acute ischemic infarction. Normal soft tissue structures. Normal visualized paranasal sinuses. CT/Brain/Head without Contrast IMPRESSION: Chronic involutional changes of the brain. Electronically Signed: Edin Hummel MD at 13:05 EDT Tel , Service support ,
--- NOTE | 2020-02-06 11:54 | EKG12_ITS ---
Test Reason : SEIZURE Blood Pressure : / mmHG Vent. Rate : 064 BPM Atrial Rate : 064 BPM P-R Int : 120 ms QRS Dur : 098 ms QT Int : 396 ms P-R-T Axes : 049 164 039 degrees QTc Int : 408 ms Normal sinus rhythm Left atrial enlargement Incomplete right bundle branch block Possible Right ventricular hypertrophy Abnormal ECG Confirmed by ROSA SIN, JUAN ([id number]), online editor CA VIDAL ([id number]) on 02/08/2020 1:43:51 PM Referred By: KELLE Confirmed By:JUAN LEE MD
[2020-02-06 11:59] LABS: Absolute Lymphocyte Count 1.74 X10^3/uL (0.83-4.51); Absolute Neutrophil Count 5.1 X10^3/uL (2.0-7.7); Basophil# 0.01 X10^3/uL; Basophil% 0.1 % (0-1); Eosinophil# 0.06 X10^3/uL; Eosinophils% 0.8 % (0-5); Hematocrit 51.3 % (40-54); Hemoglobin 16.8 g/dL (13.0-16.5); Lymphocyte # 1.74 X10^3/ul (4.0); Lymphocyte % 23.4 % (19-41); Mean Corp Hgb Conc 32.7 g/dL (32-36); Mean Corpuscular Hgb 32.7 pg (27.0-32.0); Mean Corpuscular Volume 99.8 fL (80-94); Mean Platelet Vol. 9.9 fl (6.2-12.0); Monocyte# 0.49 X10^3/uL; Monocyte% 6.6 % (0-10); NRBC Flagged by Analyzer 0 % (0-5); Neutrophil # 5.12 X10^3/uL (2.7-7.7); Neutrophil % 68.8 % (47-70); Platelet Count 256 K/mm3 (150-450); RBC Distribution Width CV 12.8 % (11.6-14.6); RBC Distribution Width SD 47.5 fl (35.1-43.9); Red Blood Count 5.14 M/mm3 (4.6-6.2); White Blood Count 7.4 K/mm3 (4.4-11.0)
--- NOTE | 2020-02-06 12:07 | ED.DCSUM_ITS ---
History of Present Illness Informant: Patient, Quiller Tender Limited by: Tracior Onset: Today Context: Sudden Onset Timing: Continuous Quality: altered mental status Current Severity: Severe Maximum Severity: Severe Worsened by: nothing Relieved by: nothing Associated Symptoms: agitation Narrative: 80-year-old male presents with altered mental status with concern for seizure. History is limited from the patient as he is currently confused with altered mental status. Per EMS who is providing the history patient kind of stared off per family with concern for seizure. There was no tonic-clonic activity noted and the patient is not incontinent. He has a history of similar episodes in the past with most recent about 6 months ago that required admission to this facility. The rest of history is limited Prior similar symptoms: Yes Recent Illness/Hospitalization: No <Terry Venegas - Last Filed: 02/06/20 15:48> <Keith Ya - Last Filed: 02/07/20 17:25> Chief Complaint: Seizure Past Medical History Prior records reviewed: Yes Surgical History: herniorrhaphy, - - BL carotid endarterectomy Smoking Status: Former smoker Alcohol: None Drugs: None - Family History Maternal Family History: Reports: - - Patient denies any market maternal or paternal family history including heart disease, diabetes or cancer. Paternal Family History: Reports: - - Patient denies any market maternal or paternal family history including heart disease, diabetes or cancer. <Terry Venegas - Last Filed: 02/06/20 15:48> <Keith Ya - Last Filed: 02/07/20 17:25> - Allergies and Home Meds Allergies/Adverse Reactions: Allergies Penicillins Allergy (Verified 02/06/20 11:40) Other Review of Systems ROS: Unable to Obtain - confusion, altered mental status <Terry Venegas - Last Filed: 02/06/20 15:48> Physical Exam Vital Signs/Narrative: Vital Signs Temp Pulse Resp BP Pulse Ox 02/06/20 11:40 97.1 F L 71 21 H 149/83 H 93 Inital Vital Signs reviewed: Yes General: Well nourished, Well developed, No Acute Distress Head: Normocephalic, Atraumatic Eyes: Perrl, EOMI - no nystagmus ENT: Moist mucous membranes Neck: Supple, Nontender Cardiovascular: Regular rate, Regular rhythm Respiratory: No distress, CTA bilaterally, Chest nontender Abdomen: Soft, Nontender, Nondistended, Normal bowel sounds, No masses Back: Nontender, Normal Inspection Extremities: Nontender, No edema Skin: Normal color, No rash Neurological: Alert - oriented to self only. no focal neurological deficits Psychological: Normal affect, Normal Mood <TheoTerry - Last Filed: 02/06/20 15:48> Diagnostic/Tx/Re-eval Chest X-Ray - ED: 1 View, Read by ED Physician, Read by Radiologist, No Acute Disease - Rhythm Strip Rhythm Strip: Sinus Rhythm Rate: 64 Ectopy: None - EKG Initial EKG Interpretation: Sinus Rhythm, No Acute Injury Pattern Prior: Unchanged - Medical Decision Making On arrival the patient was alert and oriented to himself only. He had no focal neurological deficits. He is confused. Therefore history is limited. His vital signs show a pulse ox on room air of 87% and he is requiring 2 L nasal cannula. His EKG showed sinus rhythm without signs of acute ischemic changes and it is unchanged from his previous EKG. CBC BMP unremarkable. Troponin is negative. Urinalysis unremarkable as well. Chest x-ray shows no acute abnormality. CT brain shows chronic changes without acute findings. Patient is still requiring oxygen and at this time we do not have a definitive reason for this therefore we will obtain a CTA of the chest to rule out a pulmonary embolism or other acute abnormalities. CTA chest is unremarkable as well. The patient is more alert and oriented. Repeat neurological exam remains nonfocal. He has had several episodes during his stay in the emergency department where his heart rate is dropped anywhere from 32 to 37 bpm. His EKG showed no signs of heart block. At this time we feel this is more likely syncope and seizure and we will admit him for syncope and further work-up secondary to his intermittent bradycardia and hypoxia as well <Terry Venegas - Last Filed: 02/06/20 15:48> - Medical Decision Making Attending Note: I evaluated this patient with the midlevel provider. I performed my own face to face evaluation and agree with the above noted history and physical. I agree with the plan of care and the disposition. Patient presented secondary to syncope versus seizure. Broad work-up was obtained, patient was initially found to be hypoxic so was worked up for the possibility of PE versus seizure versus syncope. While in the emergency department the patient did have an episode where his heart became bradycardic down to 35. Patient symptomatology likely is secondary to symptomatic bradycardia. Patient will be admitted for further work-up and treatment. <Keith Ya - Last Filed: 02/07/20 17:25> ED Disposition <Terry Venegas - Last Filed: 02/06/20 15:48> <Keith Ya - Last Filed: 02/07/20 17:25> - Plan for ED Patient: Disposition: Acute Care Hospital [facility] Diagnosis: Syncope, Hypoxia, Bradycardia, CAD (coronary artery disease), Carotid artery disease, HLD (hyperlipidemia)
[2020-02-06 12:14] LABS: Anion Gap 11 (5-15); BUN 19 mg/dL (7-18); Calcium,Total 9.1 mg/dL (8.5-10.1); Chloride 106 mmol/L (98-107); Creatinine, Serum 1.27 mg/dL (0.70-1.30); EST Glomerular Filtration Rate 58 mL/min (>60); Est Glom Filt Rate - Afr Amer 71 mL/min (>60); Estimated Creatinine Clearance 46.38 ml/min; Glucose 115 mg/dL (74-106); Potassium 4.3 mmol/L (3.5-5.1); Sodium Level 140 mmol/L (136-145)
--- NOTE | 2020-02-06 12:20 | RAD_ITS ---
STUDY: X-RAY CHEST REASON FOR EXAM: Male, 80 years old. Altered mental status. TECHNIQUE: Single AP portable view of the chest. COMPARISON: August 12, 2019. FINDINGS: The lungs are clear and expanded. There is no demonstrated pleural abnormality. Normal size heart. Normal mediastinum and florina. Normal visualized pulmonary arteries. There is atherosclerotic calcification of the aortic arch with tortuosity. There are diffuse degenerative changes of the visualized thoracic spine. 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 The large retrocardiac hiatal hernia. RAD/Chest 1 View (Portable) IMPRESSION: 1. No acute cardiopulmonary disease or major interval change. 2. Large retrocardiac hiatal hernia. Electronically Signed: Bunny Carrington DO at 13:00 EDT Tel [phone], Service support ,
[2020-02-06 14:15] LABS: Mucous, Urine 0 SEEN /hpf (<or=2+); Red Blood Cells-Urine 0 SEEN /hpf (0-5); Squamous Epithelial Cells - UA 0 SEEN /hpf (0-5)
[2020-02-06 14:17] LABS: Color, Urine Straw (Yellow); Glucose, Dipstick Normal (Normal); Ketone-Dipstick 5 mg/dl (Negative); Leukocyte Esterase-Dipstick Negative /ul (Negative); Nitrite-Dipstick Negative (Negative); Occult Blood-Urine 25 /ul (Negative); Protein-Dipstick 30 mg/dl (Negative); Specific Gravity, Urine 1.025 (1.002-1.030); Urine Bilirubin Dipstick Negative (Negative); Urine Clarity Clear (Clear); Urine Urobilinogen Normal (Normal)
[2020-02-06 14:29] LABS: Bacteria RARE /hpf (None Seen); Hyaline Cast 0-5 SEEN /lpf (0-5); White Blood Cells 0-5 SEEN /hpf (0-5)
--- NOTE | 2020-02-06 14:32 | CT_ITS ---
STUDY: CTA CHEST REASON FOR EXAM: Male, 80 years old. Dyspnea. Confusion. RADIATION DOSAGE (If Supplied By Facility): CTDIvol = ( 17.02 ) mGy, DLP = ( 521.19 ) mGycm TECHNIQUE: The examination was performed with the intravenous administration of 100mL [id number] 100mL. Post-processing of the angiographic images was performed, with multiplanar reformation and 3D reconstruction. Individualized dose optimization techniques were used for this CT. COMPARISON: Chest, February 06, 2020. FINDINGS: Normal enhancement of the main pulmonary artery and right and left pulmonary arteries. Normal enhancement of the bilateral peripheral pulmonary arteries. There is no demonstrated pulmonary embolism. There is atherosclerotic tortuosity of the thoracic aorta without aneurysm. There is no demonstrated aortic dissection. Normal heart and pericardium. Normal mediastinum. Normal hilar regions. Normal visualized trachea and bronchi. The lungs are well expanded. Normal pulmonary parenchyma. There are minimal atelectatic changes in the lower lobes secondary to compression by a large hiatal hernia. Normal pleura. Normal chest wall structures. There are degenerative changes of thoracic spine. There is a large retrocardiac hiatal hernia which involves the proximal stomach as well as portion of the transverse colon. CT/CTA Chest W/WO Contrast IMPRESSION: 1. No evidence of pulmonary embolus. 2. No aortic dissection or aneurysm. 3. Large retrocardiac hiatal hernia containing the majority of the stomach and portions of the transverse colon. 4. Mild atelectatic changes at the lung bases due to compression by the hiatal hernia. There is no pulmonary mass or infiltrate. Electronically Signed: Bunny Carrington DO at 15:35 EDT Tel [phone], Service support ,
--- NOTE | 2020-02-06 16:38 | PCM.HP.STD ---
Problem List (1) Unresponsive Status: Acute (2) Syncope Status: Acute Qualifiers: Syncope type: unspecified Qualified Code(s): R55 - Syncope and collapse (3) Carotid artery disease Status: Chronic Qualifiers: Carotid artery disease type: unspecified Laterality: bilateral (4) Former tobacco use Status: Resolved (5) Chews tobacco Status: Resolved (6) Hypoxia Status: Acute (7) Bradycardia Status: Acute (8) TIA (transient ischemic attack) Status: Chronic Qualifiers: Transient cerebral ischemia type: unspecified Qualified Code(s): G45.9 - Transient cerebral ischemic attack, unspecified (9) Retinal artery occlusion Status: Chronic (10) CAD (coronary artery disease) Status: Chronic (11) HLD (hyperlipidemia) Status: Chronic Qualifiers: Hyperlipidemia type: unspecified Qualified Code(s): E78.5 - Hyperlipidemia, unspecified History of Present Illness Date of Admission: 02/06/20 Chief Complaint: unresponsive The patient is a 80 year old M patient was brought in for concern for possible seizure. Patient was confused with altered mental status. Family was concerned for seizure though there is no evidence of any tonic-clonic activity and the patient is never had a seizure before. Nor was the patient incontinent. Similar to an episode that happened 6 months prior. Patient was evaluated in the emergency room and underwent a brain CT that showed no acute process. Patient was also noted to be hypoxic and underwent a CT angiogram of the chest that showed no acute process other than a large hiatal hernia. Patient is clearly alert and oriented now has no recollection of the events from prior. The ER was concerned because the patient did have episodes of bradycardia down into the 30s while he was in the room. [] Past Medical History Past Medical History (Chronic Problems): Chronic Problems Carotid artery disease (Chronic) TIA (transient ischemic attack) (Chronic) Retinal artery occlusion (Chronic) CAD (coronary artery disease) (Chronic) HLD (hyperlipidemia) (Chronic) Allergies Penicillins Allergy (Verified 02/06/20 11:40) Other Home Medications: Ambulatory Orders Medication Instructions Recorded Aspirin [Aspir 81] 81 mg PO DAILY 08/12/19 Atorvastatin Calcium [Lipitor] 20 mg PO QHS 02/06/20 Surgical History: herniorrhaphy, - - BL carotid endarterectomy Psychiatric History: No pertinent psych hx Smoking Status: Former smoker Alcohol: None Drugs: None - *Family History Maternal History Items: - - Patient denies any market maternal or paternal family history including heart disease, diabetes or cancer. Paternal History Items: - - Patient denies any market maternal or paternal family history including heart disease, diabetes or cancer. Review of Systems Constitutional: Denies: Anorexia, Chills, Fever, Malaise, Weakness Eyes: Denies: Blurred vision, Double vision HEENT: Denies: Head Aches, Sinus Congestion, Sinus Drainage Cardiovascular: Denies: Chest Pain, Edema Respiratory: Denies: Cough, Shortness of breath at rest, Sputum production Gastrointestinal: Denies: Abdominal Pain, Nausea, Vomiting Genitourinary: Denies: Dysuria Musculoskeletal: Denies: Joint Pain, Joint Tenderness Skin: Denies: Dryness, Jaundice Neurological: Reports: Confusion. Denies: Tremor, Seizures Comment: All review of systems were negative except as mentioned above in the history of present illness and the other review of systems. VTE Information - Inpt Only VTE Present on Admission: No VTE Mechan Device Prophylaxis: None VTE Pharm Prophylaxis ordered?: Yes Patient Problems: Active and Suspected Problems Syncope (Acute) Hypoxia (Acute) Bradycardia (Acute) Unresponsive (Acute) - Physical Exam Vitals/I&O's: Vital Signs Temp Pulse Resp BP Pulse Ox 36.8 C 44 L 16 152/77 H 98 02/06/20 16:30 02/06/20 16:30 02/06/20 16:30 02/06/20 16:30 02/06/20 16:30 Oxygen Flow Rate (L/min) 2 Oxygen Delivery Method Nasal Cannula Weight: 69.9 kg Body Mass Index (BMI) 24.1 Finger Stick Blood Glucose 115 General: Alert, Oriented x3, Cooperative, No apparent distress, Well developed, Well nourished HEENT: Atraumatic, PERRLA, EOMI, Normocephalic Neck: Negative Carotid Bruits, No Nodes, Trachea Midline Lungs: Clear to auscultation, Normal air movement, No rhonchi, No wheeze, No rales Cardiovascular: Regular rate, Regular Rhythm, Normal S1, Normal S2, No murmurs Abdomen: Bowel Sounds Present, Soft, Non Tender, Non-Distended, No Hepato-splenomegaly Extremities: No edema, No Calf Tenderness Skin: No rashes, No breakdown Musculoskeletal: No Tenderness to Palpation of Joints or Extremities, No Muscle Wasting Neurological: Cranial nerves II-XII grossly intact, Motor Exam 5/5 strength throughout Psych/Mental Status: Normal Affect, Appropriate Laboratory Results 02/06/20 11:46: WBC 7.4, RBC 5.14, Hgb 16.8 H, Hct 51.3, MCV 99.8 H, MCH 32.7 H, MCHC 32.7, RDW Std Deviation 47.5 H, RDW Coeff of Omar 12.8, Plt Count 256, MPV 9.9, Immature Gran % (Auto) 0.300, Neut % (Auto) 68.8, Lymph % (Auto) 23.4, [facility] % (Auto) 6.6, Eos % (Auto) 0.8, Baso % (Auto) 0.1, Absolute Neuts (auto) 5.1, Absolute Lymphs (auto) 1.74, Nucleated RBC % 0 02/06/20 11:46: Sodium 140, Potassium 4.3, Chloride 106, Carbon Dioxide 23.0, Anion Gap 11, BUN 19 H, Creatinine 1.27, Estim Creat Clear Calc 46.38, Est GFR (MDRD) Af Amer 71, Est GFR (MDRD) Non-Af 58 L, BUN/Creatinine Ratio 15.0, Glucose 115 H, Calcium 9.1, Troponin I < 0.015 02/06/20 14:10: Urine Color Straw, Urine Clarity Clear, Urine pH 5.0, Ur Specific [place] 1.025, Urine Protein 30 H, Urine Glucose (UA) Normal, Urine Ketones 5 H, Urine Occult Blood 25 H, Urine Nitrite Negative, Urine Bilirubin Negative, Urine Urobilinogen Normal, Ur Leukocyte Esterase Negative, Urine RBC 0 SEEN, Urine WBC 0-5 SEEN, Ur Squamous Epith Cells 0 SEEN, Urine Bacteria RARE, Hyaline Casts 0-5 SEEN, Urine Mucus 0 SEEN Clinical Impression(s) from Imaging Studies Brain CT 02/06/20 11:53 IMPRESSION: Chronic involutional changes of the brain. Electronically Signed: Edin Hummel MD at 13:05 EDT Tel , Service support , Chest X-Ray 02/06/20 12:20 IMPRESSION: 1. No acute cardiopulmonary disease or major interval change. 2. Large retrocardiac hiatal hernia. Electronically Signed: Bunny Carrington DO at 13:00 EDT Tel [phone], Service support , Chest CTA 02/06/20 14:32 IMPRESSION: 1. No evidence of pulmonary embolus. 2. No aortic dissection or aneurysm. 3. Large retrocardiac hiatal hernia containing the majority of the stomach and portions of the transverse colon. 4. Mild atelectatic changes at the lung bases due to compression by the hiatal hernia. There is no pulmonary mass or infiltrate. Electronically Signed: Bunny Carrington DO at 15:35 EDT Tel [phone], Service support , EKG showed normal sinus rhythm with incomplete right bundle branch block. Current Medications Sodium Chloride () 10 - 40 ml IV UD PRN PRN Reason: SALINE FLUSH Assessment/Plan All Active Problems Syncope (Acute) Former tobacco use (Resolved) Chews tobacco (Resolved) Hypoxia (Acute) Bradycardia (Acute) Unresponsive (Acute) 1. Bradycardia: Patient is on no medications that could contribute to this. Concern is that patient may have been bradycardic that may have led to a syncopal episode the cause the patient's transient confusion. Discussed with Dr. Wolff, cardiology, he recommended a stress echocardiogram as well as an echocardiogram to evaluate if there is any other issue that may have contributed from cardiac standpoint. Concern is the patient may require a permanent pacemaker but that has yet to be determined. Patient will continue with telemetry monitoring. 2. Unresponsiveness: Etiology has not been from the identified but seems less likely that this is a seizure as patient had no tonic-clonic activity, is never had a seizure before nor was he incontinent. Concern I have is that this may have been contributed to by the bradycardia that may have induced a vagal type event. Patient be monitored from a cardiac standpoint. If patient does develop any kind of seizure-like activity then could consider proceeding with a seizure work-up at that point in time. 3. VTE prophylaxis: Moderate risk enoxaparin. 4. Advanced care planning: Full code according to the patient. Inpatient E&M: 93774 Init Hosp L3
--- NOTE | 2020-02-06 16:46 | STEWCON_ITS ---
Reason For Study: Bradycardia Stress Results Protocol: Dobutamine Stress Echo Maximum Predicted HR: 142 bpm Target HR: 121 bpm % Maximum Predicted HR: 85 % Heart Stage Duration Rate BP Comment (mm:ss) (bpm) Attempted Modified Chris Protocol for 2 min 46 Secs; Patient Unable Baseline 50 99/59 to Continue Walking; Converted to Dobutamine Stress Echo; Diluted Definity 6 ML Given DSE 10 MCG 4:21 56 100/65No Chest Pain DSE 20 MCG 3:00 99 119/77No Chest Pain DSE 30 MCG 4:10 121 100/52No Chest Pain Recovery 81 126/68No Chest Pain Stress Duration: 11:31 mm:ss Maximum Stress HR: 121 bpm METS: 1 Baseline Echocardiogram Findings The estimated ejection fraction is 65 %. Stress Echo Wall motion Data Resting WM Intermediate WM Stress WM Resting Wall Motion Wall Motion Stress No regional wall motion No regional wall motion abnormalities noted. abnormalities noted. EKG Data The baseline ECG displays normal sinus rhythm. The patient was titrated from 10 mcg to a maximum of 40 mcg of dobutamine during the stress. The maximum heart rate attained was 123 beats per minute. This was 86% of maximum predicted heart rate. During dobutamine infusion, there were no ST or T wave changes noted to suggest ischemia. No clinical angina was noted. Interpretation Summary The estimated ejection fraction is 65 %. Normal, adequate, dobutamine echocardiogram. Negative for ischemia by EKG and echocardiographic criteria. No anginal symptoms noted. Rare PVC noted. Patient had excellent chronotropic response to dobutamine. Test terminated due to the attainment of target heart rate. Final LVEF is 75%. Decrease sensitivity due to poor echo windows requiring Definity agent. Patient tolerated procedure well. No complications. The study was technically difficult. Contrast injection was performed. Ordering Physician: Giuseppe Sands Referring Physician: Austin Wolff Performed By: Mery Lechuga, RDCS, RVT
--- NOTE | 2020-02-06 16:46 | ECHOD_ITS ---
Reason For Study: BRADYCARDIA Procedure This was a 2D Doppler, Color Flow transthoracic echocardiogram. Exam performed in department. Left Ventricle Normal size and thickness. The estimated ejection fraction is 75 %. Stage 2 diastolic dysfunction. No regional wall motion abnormalities noted. Right Ventricle Normal size and thickness. Normal systolic function. Atria Normal left atrium. Normal right atrium. Normal atrial septum. Mitral Valve The mitral valve is structurally normal. No prolapse or stenosis seen. Mild (1+) eccentric mitral valve insufficiency. Tricuspid Valve Normal tricuspid valve. Mild (1+) tricuspid valve insufficiency. Right ventricular systolic pressure estimated to be 43 mmHg. Mild pulmonary hypertension. Aortic Valve Trisinus/trileaflet aortic valve. Trivial aortic valve insufficiency. Pulmonic Valve Normal pulmonic valve. Trivial pulmonic valve insufficiency. Great Vessels Normal aortic root. Normal arch. Normal inferior vena cava. Inferior vena cava collapse with sniff. Pericardium/Pleural No pericardial effusion. MMode/2D Measurements & Calculations LVIDd: 4.3 cm IVSd: 0.76 cm Ao root diam: 3.5 cm LVIDs: 2.3 cm LVPWd: 0.88 cm RVDd: 3.3 cm FS: 47.9 % LAV(MOD-bp): 33.7 ml LA A4 area: 17.1 cm2 LA dimension(2D): 4.0 cm LAV(MOD-bp) Indexed: 18.6 ml/m2 LAV(MOD-sp2): 22.2 ml LAV(MOD-sp4): 48.3 ml RA A4 area: 15.8 cm2 Time Measurements MV dec time: 0.25 sec Doppler Measurements & Calculations MV E max tong: 70.7 cm/sec Lat Peak E' Tong: 4.4 cm/sec Med Peak E' Tong: 5.2 cm/sec MV A max tong: 70.7 cm/sec E/E' lat: 16.1 E/E' med: 13.7 MV E/A: 1.0 Ao V2 max: 142.9 cm/sec AI max tong: 323.0 cm/sec PA V2 max: 102.5 cm/sec Ao max P.2 mmHg AI max P.7 mmHg AI dec slope: 107.1 cm/sec2 AI P1/2t: 882.9 msec PI end-d tong: 142.8 cm/sec TR max tong: 304.5 cm/sec TR max P.6 mmHg Interpretation Summary The estimated ejection fraction is 75 %. Stage 2 diastolic dysfunction. Mild (1+) eccentric mitral valve insufficiency. Mild (1+) tricuspid valve insufficiency. Right ventricular systolic pressure estimated to be 43 mmHg. Mild pulmonary hypertension. Trivial aortic valve insufficiency. There is no comparison study available. Ordering Physician: Giuseppe Sands Referring Physician: KELLIE MONTENEGRO CHI Performed By: Mery Lechuga, PAWAN, RVT
[2020-02-06 17:46] LABS: Thyroid Stim Hormone (TSH) 2.66 uIU/mL (0.358-3.74)
[2020-02-06] MEDS: Atorvastatin Calcium 20 MG Tablet PO (22:51)
[2020-02-07] VITALS (8 sets, daily range): BP systolic 99–116; BP diastolic 47–59; PULSE 40–77; RESP 16–18; TEMP 36.6–36.7; O2SAT 92–95
[2020-02-07] MEDS: Aspirin E.C. 81 MG Tablet PO (05:22)
--- NOTE | 2020-02-07 09:02 | CON.PCM_ITS ---
Problem List (1) Bradycardia Status: Acute (2) Unresponsive Status: Acute (3) HLD (hyperlipidemia) Status: Chronic Qualifiers: Hyperlipidemia type: unspecified Qualified Code(s): E78.5 - Hyperlipidemia, unspecified Reason for Consult Date of Consultation: 02/07/20 Reason for Consultation: Mental status changes, bradycardia History of Present Illness: The patient is a 80 year old M extremely hard of hearing, no previous known coronary artery disease, nondiabetic, former smoker of less than 1 pack/day for 26 years who quit 1985, no previous myocardial infarction, hypertension or hypercholesterolemia. He is never had a catheterization or stress test to his knowledge. As best I can tell the patient was in normal health till yesterday when he developed some mental status changes that he cannot fully recall. As best he can remember he was brought to the emergency room by his family. At that time he was found to have episodes of sinus bradycardia as low as the 30s. He underwent CTA of his head which was essentially negative. In addition he had some shortness of breath and he underwent a CT of his chest which demonstrated a very large hiatal hernia with the majority of his upper abdominal contents localized to his upper left thorax. Patient was admitted and treated medically. Overnight his telemetry has showed sinus bradycardia. His EKG showed normal sinus rhythm with left incomplete right bundle branch block, no previous myocardial infarction, QT corrected was 408 ms. Interestingly the patient was on no beta-blockers, calcium channel blockers, digoxin, clonidine, or [id number] or herbal medications to explain his bradycardia. His troponin was initially negative and then increased to 0.395 this morning. He denied any chest pain or anginal symptoms. On further history the patient states that he is had several episodes of positional lightheadedness, dizziness, and presyncope over the last several days to weeks. To the best of his knowledge he has had no overt syncope although he cannot remember the events of yesterday. His echocardiogram from 08/12/2019 is as follows: The estimated ejection fraction is 65 %. Diastolic function is indeterminate. Moderate (2+) tricuspid valve insufficiency. Pulmonary artery systolic pressure is 45 mmHg. Mild (1+) aortic valve insufficiency. Repeat echocardiogram and stress test are pending.] Past Medical History Allergies/Adverse Reactions: Allergies Penicillins Allergy (Verified 02/06/20 11:40) Other Home Medications: Ambulatory Orders Medication Instructions Recorded Aspirin [Aspir 81] 81 mg PO DAILY 08/12/19 Atorvastatin Calcium [Lipitor] 20 mg PO QHS 02/06/20 Past Medical History (Chronic Problems): Chronic Problems Carotid artery disease (Chronic) TIA (transient ischemic attack) (Chronic) Retinal artery occlusion (Chronic) CAD (coronary artery disease) (Chronic) HLD (hyperlipidemia) (Chronic) Surgical History: herniorrhaphy, - - BL carotid endarterectomy Psychiatric History: No pertinent psych hx - *Family History Maternal History Items: - - Patient denies any market maternal or paternal family history including heart disease, diabetes or cancer. Paternal History Items: - - Patient denies any market maternal or paternal family history including heart disease, diabetes or cancer. Smoking Status: Former smoker Tobacco Use: Cigarettes, Chew Alcohol: None Drugs: None Review of Systems - Review of Systems General: Denies: Fever, Night Sweats, Fatigue Cardiovascular: Reports: Lightheadedness, Dizziness, Near Syncope. Denies: Chest Discomfort, Shortness of Breath, Orthopnea, PND, Peripheral Edema, Palpitations, Syncope Respiratory: Denies: Cough, Sputum Production, Hemoptysis Gastrointestinal: Denies: Hematemesis, Hematochezia, Melena Genitourinary: Denies: Dysuria, Hematuria Skin: Denies: Rash Subjectve: Patient laying in bed, no acute distress. Objective: Vital Signs Temp Pulse Resp BP Pulse Ox 98.1 F 46 L 18 116/54 L 95 02/07/20 05:18 02/07/20 06:45 02/07/20 05:18 02/07/20 05:18 02/07/20 05:18 Oxygen Flow Rate (L/min) 3 Oxygen Delivery Method Nasal Cannula Weight: 154 lb 1.65 oz Body Mass Index (BMI) 24.1 Finger Stick Blood Glucose 115 Intake and Output for Last 24 Hours 02/05/20 02/06/20 02/07/20 23:59 23:59 23:59 Intake Total 480 / 480 Balance 480 / 480 General: Awake, Alert, Oriented x 3 HEENT: PERRL, EOMI, Sclera Non Icteric Neck: Supple, Good ROM, No Lymph Node Enlargement Lungs: Clear to auscultation Cardiovascular: Regular Rhythm, Normal S1, Normal S2, No Murmurs, No Rubs, No Gallops Vascular: No Carotid Bruits, Normal Femoral Pulses, Normal Radial Pulses, Normal Dorsalis Pedal Pulse, Normal Posterior Tibial Pulses Abdomen: Bowel Sounds Present, Soft, Non Tender, No HSM, No Organomegaly Extremities: No Cyanosis, No Clubbing, No edema Neurological: No Focal Motor or Sensory Deficit 02/06/20 11:46: WBC 7.4, RBC 5.14, Hgb 16.8 H, Hct 51.3, MCV 99.8 H, MCH 32.7 H, MCHC 32.7, Plt Count 256, MPV 9.9, Immature Gran % (Auto) 0.300, Neut % (Auto) 68.8, Lymph % (Auto) 23.4, [place] % (Auto) 6.6, Eos % (Auto) 0.8, Baso % (Auto) 0.1, Absolute Neuts (auto) 5.1, Nucleated RBC % 0 02/06/20 11:46: Sodium 140, Potassium 4.3, Chloride 106, Carbon Dioxide 23.0, An ion Gap 11, BUN 19 H, Creatinine 1.27, Est GFR (MDRD) Af Amer 71, Est GFR (MDRD) Non-Af 58 L, BUN/Creatinine Ratio 15.0, Glucose 115 H, Calcium 9.1, Troponin I < 0.015 02/06/20 14:10: Urine Color Straw, Urine Clarity Clear, Urine pH 5.0, Ur Specific [place] 1.025, Urine Protein 30 H, Urine Glucose (UA) Normal, Urine Ketones 5 H, Urine Occult Blood 25 H, Urine Nitrite Negative, Urine Bilirubin Negative, Urine Urobilinogen Normal, Ur Leukocyte Esterase Negative, Urine RBC 0 SEEN, Urine WBC 0-5 SEEN 02/06/20 17:14: Troponin I 0.229 H 02/06/20 20:00: Troponin I 0.395 H Rhythm: EKG: ECHO: 01/10/2019: The estimated ejection fraction is 65 %. Diastolic function is indeterminate. Moderate (2+) tricuspid valve insufficiency. Pulmonary artery systolic pressure is 45 mmHg. Mild (1+) aortic valve insufficiency. Stress Test: Cardiac Cath: PCI: CT Surgery: Holter monitor: EPS: PPM: CXR: Chest CT Scan: Assessment/Plan 1. Presyncope: Patient had mental status changes and presyncope as well as difficulty recalling coming to the emergency room. The patient had several documented episodes of sinus bradycardia and has evidence on CT scan of significant hiatal hernia which may be contributing to his bradycardia. His TSH is low. The patient had a previous echocardiogram on 08/12/2019 with the following results: The estimated ejection fraction is 65 %. Diastolic function is indeterminate. Moderate (2+) tricuspid valve insufficiency. Pulmonary artery systolic pressure is 45 mmHg. Mild (1+) aortic valve insufficiency. At this point my working diagnosis that the patient may have sinus bradycardia induced mental status changes and/or presyncope. The patient has had several episodes of lightheadedness and dizziness. In order to determine whether the patient requires a pacemaker and has significant chronotropic reserve, I recommend the patient undergo a repeat 2D echo with Doppler to determine if he is had any deterioration of his LV function followed by either a treadmill or dobutamine echocardiogram to determine his chronotropic competence and reserve. If he has no significant chronotropic reserve, he may require a pacemaker. However given the patient's non-STEMI, he may require a diagnostic coronary angiogram first given his age, risk factors and previous smoking. This will determine whether the patient has any coronary vascular causes of his bradycardia. It may be that the patient's significant hiatal hernia may be impacting on his bradycardia as well. I would recommend surgical consultation for possible surgical correction of his hiatal hernia which may improve his overall heart rate. At this point I would not recommend beta-camilla therapy, calcium channel bl ocker or digoxin given his bradycardia. At this point he can continue baby aspirin therapy. Should he require diagnostic coronary angiogram we will need to load him with Plavix prior to this. 2. Hyperlipidemia: Recommend fasting lipid profile. Continue Lipitor. 3. Thank you very much for the opportunity to participate in the cardiac care of your patient. Consultation time took place between 830 and 9 AM. Inpatient E&M: 82580 Init Hosp L2
[2020-02-07 10:19] LABS: Cholesterol 144 mg/dL (200); High Density Lipoprotein 35 mg/dL; Triglycerides 112 mg/dL; Very Low Density Lipoprotein 22 mg/dL (5-40)
--- NOTE | 2020-02-07 11:00 | CASEMGMT ---
IVAN NÚÑEZ assessment: Face to Face with patient for initial transition planning/care coordination assessment. RN NIYA introduced self and role at [facility], pt voices understanding and consents to assessment at this time. Pt is hard of hearing. Pt is A/Ox4 at this time and answers all questions appropriately at this time. Care providers, pharmacy, and demographics verified at this time. Presentation: Possible absent seizure, was post ictal-agitated, restless Admitting dx: Bradycardia, unresponsive PCP: Harjinder Specialists: Pt states no current specialists. Preferred Pharmacy: [facility] Pres[facility] Benefit: [employer] Living Will/HPOA: Pt does not have LW/HPOA and declines AD info at this time. LNOK: Daniel Carey, son Living Arrangements: Pt states lives with son and [id number] in 1 story home and states no concerns at home at this time. Pt states is independent with ADL's. Transportation: Pt states drives self and states no transportation concerns at this time. DME/HHC: Pt states has no current DME or no need for any DME at this time. Pt states no hx of HHC or SNF in the past. Pt states no concerns with going home at time of discharge. Pt is retired. Pt states does not smoke or drink ETOH. Pt states no further concerns/needs at this time. CM to follow Pt/OT eval and for any further discharge planning/needs. Advised pt to ask for CM if any further questions/concerns/needs arise, voices understanding. Pt Goal: Home Plan[place] IVAN NÚÑEZ
--- NOTE | 2020-02-07 13:06 | CHAPLAIN ---
Type of Pastoral Visit _x__ Initial Visit ___ Follow-up Visit ___ On-call Visit ___ General Patient Visit ___ Spiritual Assessment ___ Family Conference ___ Bereavement ___ Rapid Response ___ Code Blue ___ Other (describe below) Pastoral Care Referral From _x__ Patient ___ Family ___ Nurse ___ Physician ___ Relocation Counselor ___ Proposal Director ___ Other (describe below) Sacrament/Intervention _x__ Active listening ___ Anointing ___ Presybeterian ___ Bereavement ___ Communion _x__ Christine exploration ___ ___ Life review ___ Prayer ___ Reconciliation ___ Sacrament of Sick _x__ Supportive presence ___ Wedding ___ Other (describe below) Pastoral Comments
--- NOTE | 2020-02-07 13:26 | PN_ITS ---
<Ramses Bishop - Last Filed: 02/07/20 13:26> Patient Problems: Active and Suspected Problems Syncope (Acute) Hypoxia (Acute) Bradycardia (Acute) Unresponsive (Acute) Reason for Visit: bradycardia Subjective: Pt seen and examined post stress test. He denies SOB or CP during stress. He denies LH/dizziness today. He denies recent illness/infection. He has no complaints. Vitals/I&O's: Vital Signs Temp Pulse Resp BP Pulse Ox 98.1 F 53 L 16 99/59 L 92 02/07/20 10:44 02/07/20 10:44 02/07/20 10:44 02/07/20 10:44 02/07/20 10:44 Oxygen Flow Rate (L/min) 3 Oxygen Delivery Method Room Air Weight: 154 lb 1.65 oz Body Mass Index (BMI) 24.1 Finger Stick Blood Glucose 115 Intake and Output for Last 24 Hours 02/05/20 02/06/20 02/07/20 23:59 23:59 23:59 Intake Total 480 / 480 Balance 480 / 480 General: Alert, Oriented x3, Cooperative HEENT: Atraumatic, PERRLA, EOMI, Normocephalic Neck: Supple, No JVD, Negative Carotid Bruits Lungs: Clear to auscultation, Normal air movement Cardiovascular: Regular rate, No murmurs Abdomen: Bowel Sounds Present, Soft, Non Tender Extremities: No edema, Capillary Refill Less than 3 Seconds Skin: No rashes, No breakdown Musculoskeletal: No Tenderness to Palpation of Joints or Extremities Neurological: Cranial nerves II-XII grossly intact Psych/Mental Status: Normal Affect, Appropriate, Alert and oriented to time, place, person, mood and affect Laboratory Results 02/06/20 14:10: Urine Color Straw, Urine Clarity Clear, Urine pH 5.0, Ur Specific [place] 1.025, Urine Protein 30 H, Urine Glucose (UA) Normal, Urine Ketones 5 H, Urine Occult Blood 25 H, Urine Nitrite Negative, Urine Bilirubin Negative, Urine Urobilinogen Normal, Ur Leukocyte Esterase Negative, Urine RBC 0 SEEN, Urine WBC 0-5 SEEN, Ur Squamous Epith Cells 0 SEEN, Urine Bacteria RARE, Hyaline Casts 0-5 SEEN, Urine Mucus 0 SEEN 02/06/20 17:14: Troponin I 0.229 H, TSH 2.66 02/06/20 20:00: Troponin I 0.395 H 02/07/20 09:54: Triglycerides 112, Cholesterol 144, LDL Cholesterol 87, VLDL Cholesterol 22, HDL Cholesterol 35 L Current Medications Acetaminophen (Tylenol) 650 mg PO Q6H PRN PRN PRN Reason: Pain Score 1-10/Temp > 100.7 F Aspirin (Ecotrin) 81 mg PO DAILY [facility] Last Admin: 02/07/20 05:22 Dose: 81 mg Documented by: Atorvastatin Calcium (Lipitor) 20 mg PO QHS [facility] Last Admin: 02/06/20 22:51 Dose: 20 mg Documented by: Dextrose (D50w Syringe) 0 gm IV X1 PRN; Protocol PRN Reason: Hypoglycemia Enoxaparin Sodium (Lovenox) 40 mg SC DAILY [facility] Glucagon () 1 mg IM .X1 PRN PRN Reason: Hypoglycemia Ondansetron HCl (Zofran) 4 mg IV Q8H PRN PRN PRN Reason: NAUSEA/VOMITING STROKE Vital Signs/Narrative: Vital Signs Temp Pulse Resp BP Pulse Ox 02/07/20 10:44 98.1 F 53 L 16 99/59 L 92 Medical Necessity - Tobacco Use Smoking Status: Former smoker Tobacco Use: Cigarettes, Chew Assessment/Plan All Active Problems Syncope (Acute) Former tobacco use (Resolved) Chews tobacco (Resolved) Hypoxia (Acute) Bradycardia (Acute) Unresponsive (Acute) 1. Syncope 2/2 bradycardia - Cardiology following. echo shows EF 75%, St2 diastolic dysfunction, RVSP 43 mmHg consistent with mild pulmonary hypertension, 1+ MVI, TBI. He had a stress echo today which showed no evidence for ischemia. CTA of the chest was negative for PE. It did demonstrate a large retrocardiac hiatal hernia containing the majority of the stomach and portions of the transverse colon. The patient was previously unaware of this. 2. Hyperlipidemia-statin 3. Lovenox Discharge planning: Pending further cardiology work-up. Consideration for pacemaker. This patient was seen by Ramses Bishop PA-C under the supervision of Doctor Shayna. <Josh Corral - Last Filed: 02/07/20 15:44> Vitals/I&O's: Vital Signs Temp Pulse Resp BP Pulse Ox 98.1 F 77 16 99/59 L 92 02/07/20 10:44 02/07/20 14:59 02/07/20 10:44 02/07/20 10:44 02/07/20 10:44 Oxygen Flow Rate (L/min) 3 Oxygen Delivery Method Room Air Weight: 69.9 kg Body Mass Index (BMI) 24.1 Finger Stick Blood Glucose 115 Intake and Output for Last 24 Hours 02/05/20 02/06/20 02/07/20 23:59 23:59 23:59 Intake Total 480 / 480 Balance 480 / 480 Laboratory Results 02/06/20 17:14: Troponin I 0.229 H, TSH 2.66 02/06/20 20:00: Troponin I 0.395 H 02/07/20 09:54: Triglycerides 112, Cholesterol 144, LDL Cholesterol 87, VLDL Cholesterol 22, HDL Cholesterol 35 L Current Medications Acetaminophen (Tylenol) 650 mg PO Q6H PRN PRN PRN Reason: Pain Score 1-10/Temp > 100.7 F Aspirin (Ecotrin) 81 mg PO DAILY [facility] Last Admin: 02/07/20 05:22 Dose: 81 mg Documented by: Atorvastatin Calcium (Lipitor) 20 mg PO QHS [facility] Last Admin: 02/06/20 22:51 Dose: 20 mg Documented by: Dextrose (D50w Syringe) 0 gm IV X1 PRN; Protocol PRN Reason: Hypoglycemia Enoxaparin Sodium (Lovenox) 40 mg SC DAILY [facility] Glucagon () 1 mg IM .X1 PRN PRN Reason: Hypoglycemia Ondansetron HCl (Zofran) 4 mg IV Q8H PRN PRN PRN Reason: NAUSEA/VOMITING STROKE Vital Signs/Narrative: Vital Signs Pulse 02/07/20 14:59 77 Assessment/Plan This patient was seen in conjunction with Ramses Bishop PA-C . I have independently interviewed and examined the patient and reviewed pertinent historical, laboratory, and other data. Please refer to Ramses Bishop PA-C note for details of this patient's presentation, findings, and recommendations. I have reviewed Ramses Bishop PA-C note and concur with documented findings. In brief, patient is a 89-year-old gentleman was brought to the emergency department with altered mental status with agitation. Patient was found to be significantly bradycardic. CTA of the chest also demonstrated large retrocardi ac hiatal hernia. Admitted to monitored bed for subsequent management Physical Examination: GENERAL: cooperative HEENT: Atraumatic; EYES; Anicteric, Normal Conjunctiva NECK; supple, normal thyroid, RESPIRATORY: Diminished to auscultation CARDIOVASCULAR: Regular S1 S2, GI: soft, normoactive bowel sounds, NEURO: Awake; no lateralizing signs. SKIN: No Rash PSYCH; Flat affect Assessment: 1. Significant bradycardia 2. Large retrocardiac hiatal hernia 3. Dyslipidemia 4. Acute encephalopathy 5. Elevated troponin 6. DVT prophylaxis?Lovenox Recommendations: 1. I have discussed the results of my overview and impressions with the patient 2. Options for management were reviewed OBSV E&M: [id number] Subsequent observation care L3
[2020-02-07] MEDS: Enoxaparin 40 MG/0.4 ML Syringe SC (17:25)
--- NOTE | 2020-02-07 18:24 | CASEMGMT ---
According to [facility], the following are in-network tertiary facilities: [facility], [place], [place], [facility], [facility], and . Bryanna LOVE CM
--- NOTE | 2020-02-07 18:47 | PCM.DC.SUM ---
<Ramses Bishop - Last Filed: 02/07/20 18:47> Discharge Date and Diagnosis Date of Admission: 02/06/20 Date of Discharge: 02/07/20 - Primary Discharge Diagnosis Acute Problems: Active Problems Syncope 2/2 Bradycardia Bradycardia 2/2 Large retrocardiac hiatal hernia Indeterminate troponin Hx TIA vs Syncope - Secondary Discharge Diagnosis Chronic Problems: Chronic Problems Carotid artery disease (Chronic) TIA (transient ischemic attack) (Chronic) Retinal artery occlusion (Chronic) CAD (coronary artery disease) (Chronic) HLD (hyperlipidemia) (Chronic) Hospital Course and Treatment Imaging Results: DIAGNOSTICS: CT/CTA Chest W/WO Contrast IMPRESSION: 1. No evidence of pulmonary embolus. 2. No aortic dissection or aneurysm. 3. Large retrocardiac hiatal hernia containing the majority of the stomach and portions of the transverse colon. 4. Mild atelectatic changes at the lung bases due to compression by the hiatal hernia. There is no pulmonary mass or infiltrate. 2D TTE: Interpretation Summary The estimated ejection fraction is 75 %. Stage 2 diastolic dysfunction. Mild (1+) eccentric mitral valve insufficiency. Mild (1+) tricuspid valve insufficiency. Right ventricular systolic pressure estimated to be 43 mmHg. Mild pulmonary hypertension. Trivial aortic valve insufficiency. There is no comparison study available. STRESS ECHO: Interpretation Summary The estimated ejection fraction is 65 %. Normal, adequate, dobutamine echocardiogram. Negative for ischemia by EKG and echocardiographic criteria. No anginal symptoms noted. Rare PVC noted. Patient had excellent chronotropic response to dobutamine. Test terminated due to the attainment of target heart rate. Final LVEF is 75%. Decrease sensitivity due to poor echo windows requiring Definity agent. Patient tolerated procedure well. No complications. The study was technically difficult. Contrast injection was performed. CT/Brain/Head without Contrast IMPRESSION: Chronic involutional changes of the brain. RAD/Chest 1 View (Portable) IMPRESSION: 1. No acute cardiopulmonary disease or major interval change. 2. Large retrocardiac hiatal hernia. Consultations: Cardiology - Wolff Operations: None Procedures: 2-D Echocardiogram, Stress test Summary of Care Provided: Hospital Course: The patient is a 80 year old M with a pmhx of syncope vs TIA in Aug 2019, on asa/statin at home, who presented to the ER with syncope. He was brought to the ER and found to have sinus baldemar at a rate of 35 on the monitor. His EKG showed NSR rate 64, L atrial enlargement , incomplete RBBB, Poss R vent hypertrophy, CT brain was negative, CXR showed hiatal hernia. Initital troponin was negative. He was not taking any rate limiting meds at home. He was admitted to the PCU on tele. He remained in sinus rhythm with mild baldemar and normal sinus throughout his stay. Nurse Clinician, Dr. Wolff, evaluated the patient in the AM and obtained a TTE, which showed EF 75% stage 2 diastolic dysfunction, 1+ MVI, 1+ TVI, RVSP 54 mmHg. His troponin bumped to indeterminate level 0.229 then 0.395. He underwent a stress echo which did not suggest ischemia. TSH was negative. A CTA chest was obtained and showed a large retrocardiac hiatal hernia. Cardiology recommended general surgery consult as it was felt the hernia was attributing to the bradycardia. I spoke to Dr. Sosa admissions advisor with whom the case was discussed and he recommended that the patient be transferred to a tertiary center for surgical correction of the hernia as soon as possible. The patient was agreeable to transfer to the [facility]. I discussed the case with General surgery, Dr. Hollingsworth whom accepted the patient. I also discussed this with the [facility] cardiothoracic surgeon and SICU cinder crew worker. The patient was tranferred to the SICU at [facility] in stable condition. At this time he has no symptoms including chest pain, SOB, nausea, vomiting, abdominal pain. He remains in NSR and his vitals are stable. This patient was seen by Ramses Bishop PA-C under the supervision of Dr. Corral. [] - Physical Exam Vitals/I&O's: Vital Signs Temp Pulse Resp BP Pulse Ox 97.8 F 61 16 110/59 L 93 02/07/20 16:40 02/07/20 16:40 02/07/20 16:40 02/07/20 16:40 02/07/20 16:40 Oxygen Flow Rate (L/min) 3 Oxygen Delivery Method Room Air Weight: 154 lb 1.65 oz Body Mass Index (BMI) 24.1 Finger Stick Blood Glucose 115 Intake and Output for Last 24 Hours 05/02/06/20 02/07/20 23:59 23:59 23:59 Intake Total 480 / 480 990 / 990 Balance 480 / 480 990 / 990 General: Alert, Oriented x3, Cooperative HEENT: Atraumatic, PERRLA, EOMI, Normocephalic Neck: Supple, No JVD, Negative Carotid Bruits Lungs: Clear to auscultation, Normal air movement Cardiovascular: Regular rate, No murmurs Abdomen: Bowel Sounds Present, Soft, Non Tender Extremities: No edema, Capillary Refill Less than 3 Seconds Skin: No rashes, No breakdown Musculoskeletal: No Tenderness to Palpation of Joints or Extremities Neurological: Cranial nerves II-XII grossly intact Psych/Mental Status: Normal Affect, Appropriate Laboratory Results 02/06/20 20:00: Troponin I 0.395 H 02/07/20 09:54: Triglycerides 112, Cholesterol 144, LDL Cholesterol 87, VLDL Cholesterol 22, HDL Cholesterol 35 L Current Medications Acetaminophen (Tylenol) 650 mg PO Q6H PRN PRN PRN Reason: Pain Score 1-10/Temp > 100.7 F Aspirin (Ecotrin) 81 mg PO DAILY [facility] Last Admin: 02/07/20 05:22 Dose: 81 mg Documented by: Atorvastatin Calcium (Lipitor) 20 mg PO QHS [facility] Last Admin: 02/06/20 22:51 Dose: 20 mg Documented by: Dextrose (D50w Syringe) 0 gm IV X1 PRN; Protocol PRN Reason: Hypoglycemia Enoxaparin Sodium (Lovenox) 40 mg SC DAILY [facility] Last Admin: 02/07/20 17:25 Dose: 40 mg Documented by: Glucagon () 1 mg IM .X1 PRN PRN Reason: Hypoglycemia Ondansetron HCl (Zofran) 4 mg IV Q8H PRN PRN PRN Reason: NAUSEA/VOMITING Discharge Diet: - - as directed by accepting facility. Discharge Activity: - - as directed by accepting facility. Home Medications: Medications to take at Discharge Aspirin [Aspir 81] 81 mg PO DAILY 08/12/19 Atorvastatin Calcium [Lipitor] 20 mg PO QHS 02/06/20 Primary Care Physician: Adalberto Grande Chi, MD [Primary Care Provider] - Please follow up with your Primary Care Physician in: as directed by accepting facility. Disposition: Acute care Hospital Minutes spent on discharge:: 45 Patient Condition:: Stable Medical Necessity - Tobacco Use Smoking Status: Former smoker Tobacco Use: Cigarettes, Chew Meaningful Use Info Meaningful Use Diagnoses (Choose all that apply): None applicable <Josh Corral - Last Filed: 02/08/20 07:11> Discharge Date and Diagnosis - Secondary Discharge Diagnosis Chronic Problems: Chronic Problems Carotid artery disease (Chronic) TIA (transient ischemic attack) (Chronic) Retinal artery occlusion (Chronic) CAD (coronary artery disease) (Chronic) HLD (hyperlipidemia) (Chronic) Hospital Course and Treatment Summary of Care Provided: This patient was seen in conjunction with Ramses Bishop PA-C . I have independently interviewed and examined the patient and reviewed pertinent historical, laboratory, and other data. Please refer to Ramses Bishop PA-C note for details of this patient's presentation, findings, and recommendations. I have reviewed Ramses Bishop PA-C note and concur with documented findings. In brief, patient is 89-year-old gentleman admitted following progressive generalized weakness and lightheadedness. Found to be significantly bradycardic. Patient was also found to have a large retrocardiac hiatal hernia. He underwent an echo stress test which was negative for stress-induced ischemia. Given the size of his hiatal hernia recommendation was made for patient to be transferred to [facility]. Hospital course: As documented above - Physical Exam Vitals/I&O's: Vital Signs Temp Pulse Resp BP Pulse Ox 98.0 F 54 L 18 100/47 L 92 02/07/20 20:29 02/07/20 20:29 02/07/20 20:29 02/07/20 20:29 02/07/20 20:29 Oxygen Flow Rate (L/min) 3 Oxygen Delivery Method Room Air Weight: 69.9 kg Body Mass Index (BMI) 24.1 Finger Stick Blood Glucose 115 Intake and Output for Last 24 Hours 02/06/20 02/07/20 02/08/20 23:59 23:59 23:59 Intake Total 480 / 480 990 / 990 Balance 480 / 480 990 / 990 Laboratory Results 02/07/20 09:54: Triglycerides 112, Cholesterol 144, LDL Cholesterol 87, VLDL Cholesterol 22, HDL Cholesterol 35 L Inpatient E&M: 55150 Disch Hosp
--- NOTE | 2020-02-07 21:52 | NURSING ---
This RN attempted to call son Daniel Carey to update that [facility] has a bed for his father and that he will be transported tonight. The son did not answer and his mailbox was full so this RN could not leave a message or number to call back.
== END 2020-02-07 22:45 | disposition short-term general hospital (02) | DRG 312 ==
LOC: ED 15:49 → PCU 15:59
PROVIDERS: Internal Medicine Cardiovascular Disease; Emergency Provider Physician Assistant Medical; PCP Family Medicine Geriatric Medicine; Visit Provider Internal Medicine
DX: R55 Syncope and collapse (principal); K44.9 Diaphragmatic hernia without obstruction or gangrene; E78.5 Hyperlipidemia, unspecified; I25.10 Atherosclerotic heart disease of native coronary artery without angina pectoris; I08.3 Combined rheumatic disorders of mitral, aortic and tricuspid valves; I45.19 Other right bundle-branch block; Z87.891 Personal history of nicotine dependence; R09.02 Hypoxemia; R00.1 Bradycardia, unspecified; I27.20 Pulmonary hypertension, unspecified
CPT/HCPCS: 36415; 70450; 71045; 71275; 80048; 80061; 81001; 84443; 84484; 85025; 93005; 93017; 93306; 93350; 99285; J7040; Q9957; Q9967; A4216; C8928

== ENCOUNTER 2020-02-26 09:32 | Emergency (ER) | payer MEDICARE, SELFPAY ==
[2020-02-06 16:26] VITALS: BMI 24.1
[2020-02-26 09:34] VITALS: BP 100/75; PULSE 64; RESP 18; TEMP 36.7; O2SAT 94; BMI 21.5
--- NOTE | 2020-02-26 09:38 | EKG12_ITS ---
Test Reason : [facility] [place] Pressure : / mmHG Vent. Rate : 061 BPM Atrial Rate : 061 BPM P-R Int : 122 ms QRS Dur : 100 ms QT Int : 400 ms P-R-T Axes : 058 155 038 degrees QTc Int : 402 ms Normal sinus rhythm Left posterior fascicular block Abnormal ECG Confirmed by ROSA SIN, JUAN ([id number]), mapping editor SEFERINO BLACK ([id number]) on 02/29/2020 9:22:51 AM Referred By: Confirmed By:JUAN LEE MD
--- NOTE | 2020-02-26 09:38 | ED.RN ---
ems reports pt appeared post ectial upon arrival to his home. pt aggitated on ed arrival. able to redirect. alert and oriented. baseline mentation per ems from previous encounters.
--- NOTE | 2020-02-26 09:39 | CT_ITS ---
STUDY: CT BRAIN WITHOUT CONTRAST REASON FOR EXAM: Male, 80 years old. CHANGE IN MENTAL STATUS RADIATION DOSAGE (If Supplied By Facility): CTDIvol = ( 44.99 ) mGy, DLP = ( 812.98 ) mGycm TECHNIQUE: Transaxial CT imaging of the brain was performed without administration of intravenous contrast material. Individualized dose optimization techniques were used for this CT. COMPARISON: February 06, 2020 FINDINGS: Normal soft tissue structures. Normal calvarium. There is mild cerebral atrophy with widening of the extra-axial spaces and ventricular dilatation. Normal white matter tracts of the cerebral hemispheres. Normal basal ganglia and thalami. Normal brainstem. There is mild cerebellar atrophy. There is no intracranial hemorrhage. There are no findings of an acute ischemic infarction. Normal visualized paranasal sinuses. CT/Brain/Head without Contrast IMPRESSION: Chronic involutional changes of the brain. Electronically Signed: Frederick Benz MD at 10:12 EDT , Service support ,
[2020-02-26 09:46] LABS: Absolute Neutrophil Count 6.2 X10^3/uL (2.0-7.7); Basophil# 0.01 X10^3/uL; Basophil% 0.1 % (0-1); Eosinophil# 0.01 X10^3/uL; Eosinophils% 0.1 % (0-5); Hemoglobin 16.5 g/dL (13.0-16.5); Lymphocyte % 10.9 % (19-41); Mean Corpuscular Hgb 32.6 pg (27.0-32.0); Mean Corpuscular Volume 98.8 fL (80-94); Mean Platelet Vol. 9.6 fl (6.2-12.0); Monocyte# 0.31 X10^3/uL; Monocyte% 4.2 % (0-10); NRBC Flagged by Analyzer 0 % (0-5); Neutrophil # 6.22 X10^3/uL (2.7-7.7); Neutrophil % 84.4 % (47-70); Platelet Count 267 K/mm3 (150-450); RBC Distribution Width SD 46.3 fl (35.1-43.9); Red Blood Count 5.06 M/mm3 (4.6-6.2); White Blood Count 7.4 K/mm3 (4.4-11.0)
[2020-02-26 09:57] LABS: International Normalized Ratio 1.1; Partial Thromboplast Time 23.5 Seconds (24.1-36.2); Prothrombin Time (Protime)PT. 13.4 SECONDS (11.7-14.9)
[2020-02-26 10:05] LABS: ALB/GLOB Ratio 1.2 RATIO (0.9-2.4); AST(SGOT) 18 U/L (15-37); Alanine Aminotransfer ALT/SGPT 22 U/L (16-61); Albumin, Serum 3.7 g/dL (3.2-5.0); Alkaline Phosphatase 71 U/L (45-117); Anion Gap 5 (5-15); BUN 18 mg/dL (7-18); BUN/Creat Ratio 14.4 RATIO (10-20); Calcium,Total 8.8 mg/dL (8.5-10.1); Chloride 107 mmol/L (98-107); Creatinine, Serum 1.25 mg/dL (0.70-1.30); EST Glomerular Filtration Rate 59 mL/min (>60); Est Glom Filt Rate - Afr Amer 72 mL/min (>60); Globulin 3.1 g/dL (2.2-4.2); Glucose 117 mg/dL (74-106); Lipase 313 U/L (73-393); Potassium 4.4 mmol/L (3.5-5.1); Protein, Total 6.8 g/dL (6.4-8.2); Sodium Level 141 mmol/L (136-145)
[2020-02-26 10:21] LABS: Alcohol, Blood (Medical)-Serum < 3.0 mg/dL
[2020-02-26 10:30] LABS: Lactic Acid 2.4 mmol/L (0.4-1.9)
[2020-02-26 10:44] LABS: Red Blood Cells-Urine 0 SEEN /hpf (0-5); Squamous Epithelial Cells - UA 0 SEEN /hpf (0-5); White Blood Cells 0 SEEN /hpf (0-5)
[2020-02-26 10:52] LABS: Color, Urine Yellow (Yellow); Glucose, Dipstick Normal (Normal); Ketone-Dipstick Negative (Negative); Leukocyte Esterase-Dipstick Negative /ul (Negative); Nitrite-Dipstick Negative (Negative); Occult Blood-Urine 10 /ul (Negative); Protein-Dipstick 30 mg/dl (Negative); Specific Gravity, Urine 1.015 (1.002-1.030); Urine Bilirubin Dipstick Negative (Negative); Urine Clarity Clear (Clear); Urine Urobilinogen Normal (Normal)
[2020-02-26 11:03] LABS: Bacteria RARE /hpf (None Seen); Mucous, Urine RARE /hpf (<or=2+)
[2020-02-26 11:05] LABS: Amphetamine Urine VISTA NEGATIVE (<1000 ng/mL); Barbiturate Urine VISTA NEGATIVE (< 200 ng/mL); Benzodiazepine Urine VISTA NEGATIVE (< 200 ng/mL); Cocaine Urine VISTA NEGATIVE (< 300 ng/mL); Ecstacy Urine VISTA NEGATIVE (< 500 ng/mL); Methadone Urine VISTA NEGATIVE (< 300 ng/mL); PCP Urine VISTA NEGATIVE (< 25 ng/mL); THC Urine VISTA NEGATIVE (< 50 ng/mL); Vista UDS pH Range 8
--- NOTE | 2020-02-26 11:43 | ED.DCSUM_ITS ---
History of Present Illness Chief Complaint: Mental Status Change Informant: Patient Onset: Today Narrative: Presents the emergency department via EMS following a possible seizure. Reportedly to EMS he got up around 7:00 and was fine. He laid down for a nap. Family went to check on him and he was difficult to arouse and EMS arrived. He was incontinent of urine. EMS states that he appeared very postictal very confused. As they drove to the hospital he became more of his normal demented self. He has had a couple of these episodes in August and last month. He is had a cardiac work-up. He underwent brain MRI. Was felt that it was possibly due to to vagal symptoms from a large hiatal hernia. No seizure activity has ever been witnessed. Past Medical History - Allergies and Home Meds Allergies/Adverse Reactions: Allergies Penicillins Allergy (Verified 02/06/20 11:40) Other Primary Care Physician: Adalberto Grande Chi, MD [Primary Care Provider] - Surgical History: herniorrhaphy, - - BL carotid endarterectomy Smoking Status: Unknown if ever smoked - Family History Maternal Family History: Reports: - - Patient denies any market maternal or paternal family history including heart disease, diabetes or cancer. Paternal Family History: Reports: - - Patient denies any market maternal or paternal family history including heart disease, diabetes or cancer. Review of Systems All systems negative except as indicated - I will note that the patient has underlying dementia and while he denies everything to me I understand that his dementia may be playing a role. General: Denies: Chills, Fever, Sweats Eyes: Denies: Visual changes - bilaterally, Diplopia ENT: Denies: Rhinorrhea, Sore throat Cardiovascular: Denies: Chest pain, Palpitations Respiratory: Denies: Dyspnea, Cough, Dyspnea on exertion Gastrointestinal: Denies: Abdominal pain, Nausea, Vomiting, Diarrhea, Melena, Hematochezia Genitourinary: Denies: Dysuria, Hematuria, Frequency Musculoskeletal: Denies: Back pain, Extremity Pain Skin: Denies: Rash, Wounds Neurological: Denies: Headache, Weakness, Numbness Physical Exam Vital Signs/Narrative: Vital Signs Temp Pulse Resp BP Pulse Ox 02/26/20 09:34 98.0 F 64 18 100/75 94 Inital Vital Signs reviewed: Yes General: Well nourished, Well developed, No Acute Distress Head: Normocephalic, Atraumatic Eyes: Perrl, EOMI ENT: Moist mucous membranes, No rhinorrhea Neck: Supple, Nontender Cardiovascular: Regular rate, Regular rhythm, No murmurs Respiratory: No distress, CTA bilaterally, Chest nontender Abdomen: Soft, Nontender, Nondistended, Normal bowel sounds : - - Patient incontinent of urine Back: Nontender, Normal Inspection Extremities: Nontender, No edema Skin: Normal color, No rash Neurological: Alert, Cranial nerves II-XII grossly intact, Normal Strength, Normal Sensation, Confused Psychological: Normal affect, Normal Mood Diagnostic/Tx/Re-eval Clinical Impression(s) from Imaging Studies Brain CT 02/26/20 09:39 IMPRESSION: Chronic involutional changes of the brain. Electronically Signed: Frederick Benz MD at 10:12 EDT , Service support , Laboratory Last Values WBC 7.4 K/mm3 (4.4-11.0) 02/26/20 09:37 RBC 5.06 M/mm3 (4.6-6.2) 02/26/20 09:37 Hgb 16.5 g/dL (13.0-16.5) 02/26/20 09:37 Hct 50.0 % (40-54) 02/26/20 09:37 MCV 98.8 fL (80-94) H 02/26/20 09:37 MCH 32.6 pg (27.0-32.0) H 02/26/20 09:37 MCHC 33.0 g/dL (32-36) 02/26/20 09:37 RDW Std Deviation 46.3 fl (35.1-43.9) H 02/26/20 09:37 RDW Coeff of Omar 13.0 % (11.6-14.6) 02/26/20 09:37 Plt Count 267 K/mm3 (150-450) 02/26/20 09:37 MPV 9.6 fl (6.2-12.0) 02/26/20 09:37 Immature Gran % (Auto) 0.300 % (0.0-0.9) 02/26/20 09:37 Neut % (Auto) 84.4 % (47-70) H 02/26/20 09:37 Lymph % (Auto) 10.9 % (19-41) L 02/26/20 09:37 [place] % (Auto) 4.2 % (0-10) 02/26/20 09:37 Eos % (Auto) 0.1 % (0-5) 02/26/20 09:37 Baso % (Auto) 0.1 % (0-1) 02/26/20 09:37 Absolute Neuts (auto) 6.2 X10^3/uL (2.0-7.7) 02/26/20 09:37 Absolute Lymphs (auto) 0.80 X10^3/uL (0.83-4.51) L 02/26/20 09:37 Nucleated RBC % 0 % (0-5) 02/26/20 09:37 PT 13.4 SECONDS (11.7-14.9) 02/26/20 09:37 INR 1.1 02/26/20 09:37 APTT 23.5 Seconds (24.1-36.2) L 02/26/20 09:37 Sodium 141 mmol/L (136-145) 02/26/20 09:37 Potassium 4.4 mmol/L (3.5-5.1) 02/26/20 09:37 Chloride 107 mmol/L (98-107) 02/26/20 09:37 Carbon Dioxide 29.0 mmol/L (21.0-32.0) 02/26/20 09:37 Anion Gap 5 (5-15) 02/26/20 09:37 BUN 18 mg/dL (7-18) 02/26/20 09:37 Creatinine 1.25 mg/dL (0.70-1.30) 02/26/20 09:37 Estim Creat Clear Calc 49.60 ml/min 02/26/20 09:37 Est GFR (MDRD) Af Amer 72 mL/min (>60) 02/26/20 09:37 Est GFR (MDRD) Non-Af 59 mL/min (>60) L 02/26/20 09:37 BUN/Creatinine Ratio 14.4 RATIO (10-20) 02/26/20 09:37 Glucose 117 mg/dL (74-106) H 02/26/20 09:37 Lactic Acid 2.4 mmol/L (0.4-1.9) H* 02/26/20 09:45 Calcium 8.8 mg/dL (8.5-10.1) 02/26/20 09:37 Total Bilirubin 0.80 mg/dL (0.20-1.00) 02/26/20 09:37 AST 18 U/L (15-37) 02/26/20 09:37 ALT 22 U/L (16-61) 02/26/20 09:37 Alkaline Phosphatase 71 U/L (45-117) 02/26/20 09:37 Troponin I < 0.015 ng/mL (<0.045) 02/26/20 09:37 Total Protein 6.8 g/dL (6.4-8.2) 02/26/20 09:37 Albumin 3.7 g/dL (3.2-5.0) 02/26/20 09:37 Globulin 3.1 g/dL (2.2-4.2) 02/26/20 09:37 Albumin/Globulin Ratio 1.2 RATIO (0.9-2.4) 02/26/20 09:37 Lipase 313 U/L (73-393) 02/26/20 09:37 Urine Color Yellow (Yellow) 02/26/20 10:40 Urine Clarity Clear (Clear) 02/26/20 10:40 Urine pH 8.0 (5.0 - 8.0) 02/26/20 10:40 Ur Specific [place] 1.015 (1.002-1.030) 02/26/20 10:40 Urine Protein 30 mg/dl (Negative) H 02/26/20 10:40 Urine Glucose (UA) Normal mg/dl (Normal) 02/26/20 10:40 Urine Ketones Negative mg/dl (Negative) 02/26/20 10:40 Urine Occult Blood 10 /ul (Negative) H 02/26/20 10:40 Urine Nitrite Negative (Negative) 02/26/20 10:40 Urine Bilirubin Negative mg/dL (Negative) 02/26/20 10:40 Urine Urobilinogen Normal mg/dl (Normal) 02/26/20 10:40 Ur Leukocyte Esterase Negative /ul (Negative) 02/26/20 10:40 Urine RBC 0 SEEN /hpf (0-5) 02/26/20 10:40 Urine WBC 0 SEEN /hpf (0-5) 02/26/20 10:40 Ur Squamous Epith Cells 0 SEEN /hpf (0-5) 02/26/20 10:40 Urine Bacteria RARE /hpf (None Seen) 02/26/20 10:40 Urine Mucus RARE /hpf (<or=2+) 02/26/20 10:40 Urine Opiates Screen NEGATIVE (< 300 ng/mL) 02/26/20 10:40 Urine Methadone Screen NEGATIVE (< 300 ng/mL) 02/26/20 10:40 Ur Barbiturates Screen NEGATIVE (< 200 ng/mL) 02/26/20 10:40 Ur Phencyclidine Scrn NEGATIVE (< 25 ng/mL) 02/26/20 10:40 Ur Amphetamines Screen NEGATIVE (<1000 ng/mL) 02/26/20 10:40 U Methamphetamin-MDMA NEGATIVE (< 500 ng/mL) 02/26/20 10:40 U Benzodiazepines Scrn NEGATIVE (< 200 ng/mL) 02/26/20 10:40 Urine Cocaine Screen NEGATIVE (< 300 ng/mL) 02/26/20 10:40 U Cannabinoids Screen NEGATIVE (< 50 ng/mL) 02/26/20 10:40 Ur Drug Screen Comment 02/26/20 10:40 Ethyl Alcohol < 3.0 mg/dL 02/26/20 09:37 - Medical Decision Making Patient's work-up is essentially negative with exception of elevated lactic acid of 2.4. Couple that with incontinence of urine and a rapidly improving mental status only makes me wonder if he is having seizures. I spoke with his primary care physician Dr. Grande who knows him well. We will place him on Keppra 500 mg twice a day. He will see Dr. Grande Friday morning at 9 to talk about EEG and further evaluation. ED Disposition - Plan for ED Patient: Disposition: Home or Assisted Living Diagnosis: Seizure Instructions: ED DEMENTIA Alzheimer's, ED Seizure New Onset Unk Cause Prescriptions: Levetiracetam [Keppra] 500 mg PO BID #60 tab Transmission Status: Pending to [id number] Referrals: Adalberto Grande Chi, MD [Primary Care Provider] - (Friday at 0900)
[2020-02-26 11:50] VITALS: BP 156/81; PULSE 61; RESP 20; O2SAT 96
--- NOTE | 2020-02-26 11:56 | ED.RN ---
2 attempts to call son. unable to make contact voicebox is full. no other contacts on file
--- NOTE | 2020-02-26 12:10 | ED.RN ---
called dispatch to see if there were any other contact numbers. [id number] claudine whom he lives with. discussed dc instructions with her. given number for jim his exwife for transportation home.
[2020-02-26 12:16] VITALS: BP 146/72; RESP 71; TEMP -6.6; TEMP 20; O2SAT 97
[2020-02-26] MEDS: levETIRAcetam 500 MG Tablet PO (12:18)
[2020-02-26 13:48] LABS: Reflex Lactate? Y
== END 2020-02-26 13:06 | disposition home or self-care (01) ==
PROVIDERS: Emergency Provider Emergency Medicine; PCP Family Medicine Geriatric Medicine
DX: R56.9 Unspecified convulsions (principal)
CPT/HCPCS: 70450; 80053; 80307; 80320; 81001; 83605; 83690; 84484; 85025; 85610; 85730; 93005; 99285; A4216; G0480

== ENCOUNTER → 2020-03-20 07:15 | Outpatient (CLI) | payer MEDICARE, SELFPAY ==
[2020-02-26 09:34] VITALS: BMI 21.5
== END ==
PROVIDERS: PCP Family Medicine Geriatric Medicine; Referring Provider Family Medicine Geriatric Medicine; Visit Provider Family Medicine Geriatric Medicine
DX: G40.909 Epilepsy, unspecified, not intractable, without status epilepticus (principal)
CPT/HCPCS: 95819

== ENCOUNTER 2020-03-23 10:26 | Emergency (ER) | payer MEDICARE, SELFPAY ==
[2020-03-23 10:28] VITALS: BP 123/74; PULSE 70; RESP 21; TEMP 36.9; O2SAT 91; BMI 23.6
[2020-03-23 10:33] VITALS: BP 123/74; PULSE 68; RESP 19; TEMP 36.9; O2SAT 93
--- NOTE | 2020-03-23 10:52 | CT_ITS ---
STUDY: CT BRAIN WITHOUT CONTRAST REASON FOR EXAM: Male, 80 years old. MS CHANGE. Patient states and quot;got hot and passed out and quot;. Hx of CAD, TIA and HLD. RADIATION DOSAGE (If Supplied By Facility): CTDIvol = ( 44.99 ) mGy, DLP = ( 798.92 ) mGycm TECHNIQUE: Transaxial CT imaging of the brain was performed without administration of intravenous contrast material. Individualized dose optimization techniques were used for this CT. COMPARISON: Comparison is made with prior study dated February 26, 2020. FINDINGS: Normal soft tissue structures. Normal calvarium. There is mild cerebral atrophy with widening of the extra-axial spaces and ventricular dilatation. There are areas of decreased attenuation within the white matter tracts of the supratentorial brain, consistent with microvascular disease changes. Normal basal ganglia and thalami. Normal brainstem. There is mild cerebellar atrophy. There is no intracranial hemorrhage. There are no findings of an acute ischemic infarction. Normal visualized paranasal sinuses. CT/Brain/Head without Contrast IMPRESSION: Chronic involutional changes of the brain. Electronically Signed: Curt Finch, at 12:00 EDT , Service support ,
--- NOTE | 2020-03-23 10:52 | EKG12_ITS ---
Test Reason : Blood Pressure : / mmHG Vent. Rate : 063 BPM Atrial Rate : 063 BPM P-R Int : 126 ms QRS Dur : 100 ms QT Int : 404 ms P-R-T Axes : 044 170 027 degrees QTc Int : 413 ms Normal sinus rhythm Possible Left atrial enlargement Right ventricular hypertrophy Abnormal ECG Confirmed by ROSA SIN, JUAN ([id number]), multimedia editor SEFERINO BLACK ([id number]) on 03/27/2020 10:58:21 AM Referred By: DANIEL Confirmed By:JUAN LEE MD
[2020-03-23 11:10] VITALS: BP 123/74; PULSE 68; RESP 19; TEMP 36.9; O2SAT 93
[2020-03-23] MEDS: 0.9% Normal Saline 1,000 ML 150 ML IV (11:11)
--- NOTE | 2020-03-23 11:15 | RAD_ITS ---
STUDY: X-RAY CHEST REASON FOR EXAM: Male, 80 years old. HYPOXIA TECHNIQUE: Single AP portable view of the chest. COMPARISON: Comparison is made with prior examination dated February 06, 2020. FINDINGS: EKG electrodes are seen. The lungs are clear and expanded. There is no demonstrated pleural abnormality. There is moderate cardiac enlargement. Normal mediastinum and florina. Normal visualized pulmonary arteries. Normal visualized aortic arch and descending thoracic aorta. Normal visualized thoracic spine. There is degenerative osteoarthritis of the bilateral shoulders. There is no demonstrated abnormality of the visualized soft tissue structures of the upper abdomen. RAD/Chest 1 View (Portable) IMPRESSION: Large hiatal hernia. The lungs are clear. Electronically Signed: Curt Finch, at 12:01 EDT , Service support ,
[2020-03-23 11:17] LABS: Absolute Lymphocyte Count 0.49 X10^3/uL (0.83-4.51); Absolute Neutrophil Count 7.1 X10^3/uL (2.0-7.7); Basophil# 0.02 X10^3/uL; Basophil% 0.3 % (0-1); Hematocrit 48.1 % (40-54); Hemoglobin 16.6 g/dL (13.0-16.5); Lymphocyte # 0.49 X10^3/ul (4.0); Lymphocyte % 6.2 % (19-41); Mean Corp Hgb Conc 34.5 g/dL (32-36); Mean Corpuscular Hgb 33.1 pg (27.0-32.0); Mean Platelet Vol. 9.6 fl (6.2-12.0); Monocyte# 0.35 X10^3/uL; Monocyte% 4.4 % (0-10); NRBC Flagged by Analyzer 0 % (0-5); Neutrophil # 7.07 X10^3/uL (2.7-7.7); Neutrophil % 88.8 % (47-70); POSITIVE DIFFERENTIAL YES; Platelet Count 261 K/mm3 (150-450); RBC Distribution Width CV 12.9 % (11.6-14.6); RBC Distribution Width SD 45.6 fl (35.1-43.9); Red Blood Count 5.01 M/mm3 (4.6-6.2)
[2020-03-23 11:39] LABS: Albumin, Serum 3.8 g/dL (3.2-5.0); BUN 20 mg/dL (7-18); BUN/Creat Ratio 17.5 RATIO (10-20); Creatinine, Serum 1.14 mg/dL (0.70-1.30); EST Glomerular Filtration Rate 66 mL/min (>60); Est Glom Filt Rate - Afr Amer 80 mL/min (>60); Estimated Creatinine Clearance 51.67 ml/min; Glucose 132 mg/dL (74-106); Protein, Total 6.8 g/dL (6.4-8.2)
[2020-03-23 11:40] LABS: ALB/GLOB Ratio 1.3 RATIO (0.9-2.4); AST(SGOT) 19 U/L (15-37); Alanine Aminotransfer ALT/SGPT 21 U/L (16-61); Alkaline Phosphatase 71 U/L (45-117); Anion Gap 4 (5-15); Calcium,Total 8.5 mg/dL (8.5-10.1); Chloride 108 mmol/L (98-107); Potassium 4.4 mmol/L (3.5-5.1); Sodium Level 139 mmol/L (136-145)
[2020-03-23 11:43] LABS: Differential Indicated SCAN CRITERIA MET
--- NOTE | 2020-03-23 11:56 | ED.DCSUM_ITS ---
- ER Visit Summary Date of Service: 03/23/20 Chief Complaint: Decreased level of consciousness History of Present Illness: The patient is a [address] Grande. Per EMS the patient was sitting out in the sun room and became unresponsive. They brought him inside where it was cool and he is now more awake, but not himself. Patient is not answering questions appropriately. I am unable to obtain any useful history from him. Appears that he was admitted for a similar episode in February and was found to have bradycardia that was thought to be secondary to a large hiatal hernia. He was transferred to [facility] at that time. I am unable to tell if the patient had a procedure done then. He was seen February 25 and there was question as to whether or not this was seizure activity and he was to be started on Keppra and have an outpatient EEG. I cannot tell if this was performed either. Physical Examination: Vitals: Stable. Afebrile. General: Well-nourished and well-developed. Head: Normocephalic atraumatic. Neck: Supple, no lymphadenopathy. No JVD. Nontender. Cardiovascular: Regular rate and rhythm. No murmurs. Respiratory: No respiratory distress. Clear to auscultation bilaterally. Abdominal: Soft, nontender, nondistended, normal bowel sounds. No guarding, r ebound, or peritoneal signs. Back: Nontender. Extremities: Nontender, no edema. Skin: Normal color, no rash. Neurologic: Patient is awake, but confused. He is picking at things. He is not answering questions appropriately.. Psych: Normal affect. Test Results: EKG is sinus at [address] changes. Ammonia is 18. Troponin is negative. LFTs are normal. Chem-7 shows a chloride of 108, glucose 132, BUN of 20. CBC shows elevated hemoglobin of 16.6 with 89 segmented neutrophils and 6 lymphocytes. Clinical Impression(s) from Imaging Studies Brain CT 03/23/20 10:52 IMPRESSION: Chronic involutional changes of the brain. Electronically Signed: Curt Finch, at 12:00 EDT , Service support , Chest X-Ray 03/23/20 11:15 IMPRESSION: Large hiatal hernia. The lungs are clear. Electronically Signed: Curt Finch, at 12:01 EDT , Service support , Emergency Department Course and Treatment: CO2 monitor is placed on his nose and shows his CO2 to be 33. On repeat exam at 1230 the patient is awake alert and answering questions appropriately. He does not remember this episode. I suspect that the patient was postictal upon arrival here. There is not a witness that can say whether or not he had a seizure. His labs are unremarkable other than his lactic acid of 2.5. This is also consistent with a seizure. Treatment Plan: Patient was discussed with his primary care physician Dr. Grande. He has had an extensive evaluation for this. He had an EEG a few days ago that was negative. This time is not felt that there is benefit to admission to the hospital. Dr. Grande will see him in the office tomorrow morning at 9 AM. I attempted to call his son and his ex- and there was no answer. Patient is happy with this plan. Return to the emergency department for any worsening symptoms. Disposition: To home in improved and stable condition. Impression: 1. Transient altered level of consciousness. This note was generated with [employer] dictation software. It may contain incorrect words, spelling, and punctuation that were not noted in review of the chart prior to signing ED Disposition - Plan for ED Patient: Instructions: ED ALOC Referrals: Adalberto Grande Chi, MD [Primary Care Provider] - 03/24/20 9:00 am
[2020-03-23 11:58] LABS: Lactic Acid 2.5 mmol/L (0.4-1.9)
--- NOTE | 2020-03-23 12:30 | ED.RN ---
lab called with lactic acid of 2.5. dr dow notified at this time.
[2020-03-23 13:11] VITALS: BP 135/91; PULSE 60; RESP 16; O2SAT 93
[2020-03-23 15:17] LABS: Reflex Lactate? Y
== END 2020-03-23 13:31 | disposition home or self-care (01) ==
LOC: ED 11:37
PROVIDERS: Emergency Provider Emergency Medicine; PCP Family Medicine Geriatric Medicine
DX: R40.4 Transient alteration of awareness (principal); Z79.899 Other long term (current) drug therapy
CPT/HCPCS: 70450; 71045; 80053; 80320; 82140; 83605; 84484; 85025; 93005; 94770; 96360; 96361; 99285; J7030; A4216; G0480

== ENCOUNTER → 2020-04-11 10:22 | Outpatient (CLI) | payer MEDICARE, SELFPAY ==
[2020-03-23 10:28] VITALS: BMI 23.6
[2020-04-11 12:31] LABS: Absolute Lymphocyte Count 1.25 X10^3/uL (0.83-4.51); Absolute Neutrophil Count 5.9 X10^3/uL (2.0-7.7); Basophil# 0.02 X10^3/uL; Basophil% 0.3 % (0-1); Eosinophil# 0.05 X10^3/uL; Eosinophils% 0.6 % (0-5); Hematocrit 49.9 % (40-54); Hemoglobin 16.7 g/dL (13.0-16.5); Lymphocyte # 1.25 X10^3/ul (4.0); Lymphocyte % 16.1 % (19-41); Mean Corp Hgb Conc 33.5 g/dL (32-36); Mean Corpuscular Hgb 33.3 pg (27.0-32.0); Mean Corpuscular Volume 99.6 fL (80-94); Mean Platelet Vol. 10.2 fl (6.2-12.0); Monocyte# 0.55 X10^3/uL; Monocyte% 7.1 % (0-10); NRBC Flagged by Analyzer 0 % (0-5); Neutrophil # 5.85 X10^3/uL (2.7-7.7); Neutrophil % 75.6 % (47-70); Platelet Count 263 K/mm3 (150-450); RBC Distribution Width CV 12.9 % (11.6-14.6); RBC Distribution Width SD 47.1 fl (35.1-43.9); Red Blood Count 5.01 M/mm3 (4.6-6.2); White Blood Count 7.7 K/mm3 (4.4-11.0)
[2020-04-11 12:49] LABS: Vitamin D,25 Hydroxy 17.9 ng/mL
[2020-04-11 13:14] LABS: ALB/GLOB Ratio 1.2 RATIO (0.9-2.4); AST(SGOT) 20 U/L (15-37); Alanine Aminotransfer ALT/SGPT 22 U/L (16-61); Albumin, Serum 3.6 g/dL (3.2-5.0); Alkaline Phosphatase 73 U/L (45-117); Anion Gap 3 (5-15); BUN 19 mg/dL (7-18); BUN/Creat Ratio 17.4 RATIO (10-20); Calcium,Total 8.8 mg/dL (8.5-10.1); Chloride 107 mmol/L (98-107); Creatinine, Serum 1.09 mg/dL (0.70-1.30); EST Glomerular Filtration Rate 70 mL/min (>60); Est Glom Filt Rate - Afr Amer 84 mL/min (>60); Globulin 3.1 g/dL (2.2-4.2); Glucose 78 mg/dL (74-106); Potassium 4.5 mmol/L (3.5-5.1); Protein, Total 6.7 g/dL (6.4-8.2); Sodium Level 141 mmol/L (136-145); Thyroid Stim Hormone (TSH) 4.36 uIU/mL (0.358-3.74)
== END ==
PROVIDERS: PCP Family Medicine Geriatric Medicine; Visit Provider Family Medicine Geriatric Medicine
DX: E55.9 Vitamin D deficiency, unspecified (principal); R53.83 Other fatigue
CPT/HCPCS: 36415; 80053; 82306; 84443; 85025

== ENCOUNTER → 2020-06-24 07:26 | Outpatient (CLI) ==
[2020-06-28 12:20] LABS: KEPPRA (LEVETIRACETAM) 2.9 ug/mL (10.0-40.0)
== END ==
PROVIDERS: Psychiatry & Neurology Neurology
DX: G40.909 Epilepsy, unspecified, not intractable, without status epilepticus (principal)
CPT/HCPCS: 36415; 80177; 82140

== ENCOUNTER → 2020-07-18 11:20 | Outpatient (CLI) | payer MEDICARE, SELFPAY ==
[2020-06-15 09:59] VITALS: BMI 23.6
[2020-07-18 12:37] LABS: Absolute Lymphocyte Count 0.89 X10^3/uL (0.83-4.51); Absolute Neutrophil Count 2.6 X10^3/uL (2.0-7.7); Basophil# 0.01 X10^3/uL; Basophil% 0.3 % (0-1); Hematocrit 50.5 % (40-54); Hemoglobin 16.6 g/dL (13.0-16.5); Lymphocyte # 0.89 X10^3/ul (4.0); Lymphocyte % 22.7 % (19-41); Mean Corp Hgb Conc 32.9 g/dL (32-36); Mean Corpuscular Hgb 31.7 pg (27.0-32.0); Mean Corpuscular Volume 96.6 fL (80-94); Mean Platelet Vol. 9.9 fl (6.2-12.0); Monocyte# 0.44 X10^3/uL; Monocyte% 11.2 % (0-10); NRBC Flagged by Analyzer 0 % (0-5); Neutrophil # 2.57 X10^3/uL (2.7-7.7); Neutrophil % 65.5 % (47-70); Platelet Count 203 K/mm3 (150-450); RBC Distribution Width CV 13.6 % (11.6-14.6); RBC Distribution Width SD 49.1 fl (35.1-43.9); Red Blood Count 5.23 M/mm3 (4.6-6.2); White Blood Count 3.9 K/mm3 (4.4-11.0)
[2020-07-18 12:52] LABS: Vitamin D,25 Hydroxy 30.7 ng/mL
[2020-07-18 13:25] LABS: ALB/GLOB Ratio 1.1 RATIO (0.9-2.4); AST(SGOT) 26 U/L (15-37); Alanine Aminotransfer ALT/SGPT 39 U/L (16-61); Albumin, Serum 3.6 g/dL (3.2-5.0); Alkaline Phosphatase 87 U/L (45-117); Anion Gap 6 (5-15); BUN 21 mg/dL (7-18); BUN/Creat Ratio 17.1 RATIO (10-20); Calcium,Total 8.8 mg/dL (8.5-10.1); Chloride 107 mmol/L (98-107); Creatinine, Serum 1.23 mg/dL (0.70-1.30); EST Glomerular Filtration Rate 60 mL/min (>60); Est Glom Filt Rate - Afr Amer 73 mL/min (>60); Globulin 3.3 g/dL (2.2-4.2); Glucose 101 mg/dL (74-106); Potassium 4.2 mmol/L (3.5-5.1); Protein, Total 6.9 g/dL (6.4-8.2); Sodium Level 138 mmol/L (136-145); Thyroid Stim Hormone (TSH) 3.02 uIU/mL (0.358-3.74)
== END ==
PROVIDERS: PCP Family Medicine Geriatric Medicine; Referring Provider Family Medicine Geriatric Medicine; Visit Provider Family Medicine Geriatric Medicine
DX: E55.9 Vitamin D deficiency, unspecified (principal); R53.83 Other fatigue
CPT/HCPCS: 36415; 80053; 82306; 84443; 85025

== ENCOUNTER → 2020-11-23 11:22 | Outpatient (CLI) | payer MEDICARE, SELFPAY ==
[2020-11-23 12:18] LABS: Absolute Lymphocyte Count 1.56 X10^3/uL (0.83-4.51); Basophil# 0.03 X10^3/uL; Basophil% 0.4 % (0-1); Eosinophil# 0.05 X10^3/uL; Eosinophils% 0.6 % (0-5); Hematocrit 52.6 % (40-54); Hemoglobin 16.9 g/dL (13.0-16.5); Lymphocyte # 1.56 X10^3/ul (4.0); Lymphocyte % 18.9 % (19-41); Mean Corp Hgb Conc 32.1 g/dL (32-36); Mean Corpuscular Hgb 31.7 pg (27.0-32.0); Mean Corpuscular Volume 98.7 fL (80-94); Mean Platelet Vol. 9.9 fl (6.2-12.0); Monocyte# 0.55 X10^3/uL; Monocyte% 6.7 % (0-10); NRBC Flagged by Analyzer 0 % (0-5); Neutrophil # 6.03 X10^3/uL (2.7-7.7); Platelet Count 289 K/mm3 (150-450); RBC Distribution Width SD 47.4 fl (35.1-43.9); Red Blood Count 5.33 M/mm3 (4.6-6.2); White Blood Count 8.3 K/mm3 (4.4-11.0)
[2020-11-23 12:37] LABS: Vitamin D,25 Hydroxy 20.5 ng/mL
[2020-11-23 12:46] LABS: ALB/GLOB Ratio 1.2 RATIO (0.9-2.4); AST(SGOT) 21 U/L (15-37); Alanine Aminotransfer ALT/SGPT 34 U/L (16-61); Albumin, Serum 3.8 g/dL (3.2-5.0); Alkaline Phosphatase 84 U/L (45-117); Anion Gap 4 (5-15); BUN 23 mg/dL (7-18); BUN/Creat Ratio 18.3 RATIO (10-20); Calcium,Total 9.1 mg/dL (8.5-10.1); Chloride 106 mmol/L (98-107); Creatinine, Serum 1.26 mg/dL (0.70-1.30); EST Glomerular Filtration Rate 59 mL/min (>60); Est Glom Filt Rate - Afr Amer 71 mL/min (>60); Globulin 3.3 g/dL (2.2-4.2); Glucose 92 mg/dL (74-106); Potassium 4.5 mmol/L (3.5-5.1); Protein, Total 7.1 g/dL (6.4-8.2); Sodium Level 142 mmol/L (136-145); Thyroid Stim Hormone (TSH) 4.34 uIU/mL (0.358-3.74)
== END ==
PROVIDERS: PCP Family Medicine Geriatric Medicine; Visit Provider Family Medicine Geriatric Medicine
DX: R53.83 Other fatigue (principal); E55.9 Vitamin D deficiency, unspecified
CPT/HCPCS: 36415; 80053; 82306; 84443; 85025

== ENCOUNTER → 2020-12-07 07:00 | Outpatient (CLI) | payer MEDICARE, SELFPAY ==
[2020-12-07 07:55] LABS: Ammonia < 10.0 umol/L (11-32)
[2020-12-07 09:08] LABS: Vitamin D,25 Hydroxy 22.9 ng/mL
[2020-12-14 08:48] LABS: KEPPRA (LEVETIRACETAM) 11.2 ug/mL (10.0-40.0)
== END ==
PROVIDERS: PCP Family Medicine Geriatric Medicine; Referring Provider Nurse Practitioner Family; Visit Provider Nurse Practitioner Family
DX: G40.011 Localization-related (focal) (partial) idiopathic epilepsy and epileptic syndromes with seizures of localized onset, intractable, with status epilepticus (principal); E55.9 Vitamin D deficiency, unspecified
CPT/HCPCS: 36415; 80177; 82140; 82306

== ENCOUNTER → 2021-02-24 07:05 | Outpatient (CLI) | payer MEDICARE, SELFPAY ==
[2021-01-17 13:05] VITALS: BMI 23.6
[2021-02-24 08:15] LABS: ALB/GLOB Ratio 1.2 RATIO (0.9-2.4); AST(SGOT) 31 U/L (15-37); Alanine Aminotransfer ALT/SGPT 51 U/L (16-61); Albumin, Serum 4.1 g/dL (3.2-5.0); Alkaline Phosphatase 81 U/L (45-117); Anion Gap 2 (5-15); BUN 26 mg/dL (7-18); BUN/Creat Ratio 19.7 RATIO (10-20); Calcium,Total 9.2 mg/dL (8.5-10.1); Chloride 106 mmol/L (98-107); Creatinine, Serum 1.32 mg/dL (0.70-1.30); EST Glomerular Filtration Rate 56 mL/min (>60); Est Glom Filt Rate - Afr Amer 67 mL/min (>60); Globulin 3.3 g/dL (2.2-4.2); Glucose 93 mg/dL (74-106); Potassium 4.3 mmol/L (3.5-5.1); Protein, Total 7.4 g/dL (6.4-8.2); Sodium Level 142 mmol/L (136-145); Thyroid Stim Hormone (TSH) 3.74 uIU/mL (0.358-3.74)
[2021-02-26 07:56] LABS: Vitamin D,25 Hydroxy 57.3 ng/mL
[2021-02-27 11:01] LABS: Lamotrigine (Lamictal) Level < 1.0 ug/mL (2.0-20.0)
== END ==
PROVIDERS: Nurse Practitioner Family; PCP Family Medicine Geriatric Medicine; Referring Provider Family Medicine Geriatric Medicine; Visit Provider Family Medicine Geriatric Medicine
DX: E03.9 Hypothyroidism, unspecified (principal); G40.011 Localization-related (focal) (partial) idiopathic epilepsy and epileptic syndromes with seizures of localized onset, intractable, with status epilepticus; E55.9 Vitamin D deficiency, unspecified
CPT/HCPCS: 36415; 80053; 82306; 82542; 84443

== ENCOUNTER → 2021-04-27 08:28 | Outpatient (CLI) | payer MEDICARE, SELFPAY ==
[2021-04-27 09:58] LABS: Vitamin D,25 Hydroxy 87.1 ng/mL
[2021-05-03 10:29] LABS: KEPPRA (LEVETIRACETAM) 13.1 ug/mL (10.0-40.0); Lamotrigine (Lamictal) Level 3.3 ug/mL (2.0-20.0)
== END ==
PROVIDERS: PCP Family Medicine Geriatric Medicine; Visit Provider Nurse Practitioner Family
DX: G40.011 Localization-related (focal) (partial) idiopathic epilepsy and epileptic syndromes with seizures of localized onset, intractable, with status epilepticus (principal); E55.9 Vitamin D deficiency, unspecified
CPT/HCPCS: 36415; 80177; 82140; 82306; 82542

== ENCOUNTER → 2021-05-09 12:46 | Outpatient (CLI) | payer MEDICARE, SELFPAY ==
--- NOTE | 2021-05-09 12:49 | CDU_ITS ---
Reason For Study: Carotid artery disease s/p BCEA Rt. Velocities/BP Lt. Velocities/BP Prox CCA 88.5/9.3 cm/sec. Prox CCA 82.7/8 cm/sec. Mid CCA 57.5/10.2 cm/sec. Mid CCA 70.6/11.3 cm/sec. Dist CCA 38.8/9.1 cm/sec. Dist CCA 52/8 cm/sec. Prox ICA 41.9/6 cm/sec. Prox ICA 24.4/6.6 cm/sec. Mid ICA 65.5/12.6 cm/sec. Mid ICA 65.7/13.3 cm/sec. Dist ICA 57/12.6 cm/sec. Dist ICA 59.6/10.7 cm/sec. Rt. ICA/CCA = 1.14. Lt. ICA/CCA = 0.93. Prox ECA 99.2/10.2 cm/sec. Prox ECA 78.3/5.8 cm/sec. Rt. Vert. 32.4/6 cm/sec. Lt. Vert. 44.8/9 cm/sec. Right Extracranial There is homogeneous, smooth atherosclerotic plaque noted in the right common carotid artery. There is homogeneous, smooth atherosclerotic plaque noted in the right internal carotid artery. There is intimal thickening but no significant atherosclerotic plaque noted in the right external carotid artery. Antegrade flow is noted in the right vertebral artery. Left Extracranial There is homogeneous, smooth atherosclerotic plaque noted in the left common carotid artery. There is homogeneous, smooth atherosclerotic plaque noted in the left internal carotid artery. There is intimal thickening but no significant atherosclerotic plaque noted in the left external carotid artery. Antegrade flow is noted in the left vertebral artery. Procedure Carotid Duplex [id number]. This is a Carotid Duplex examination using B-mode, color flow and specral Doppler. Exam performed in department. VL/Carotid Duplex Ultrasound Interpretation Summary Widely patent postoperative changes of the right carotid bulb and proximal inte rnal carotid artery with less than 50% stenosis of the internal carotid artery. Less than 50% stenosis right external carotid artery Widely patent postoperative changes of the left carotid bulb and proximal inter nal carotid artery with less than 50% stenosis of the internal carotid artery. Less than 50% stenosis left external carotid artery Patent antegrade vertebral arteries bilaterally No change from August 12, 2019 Ordering Physician: Sariah Mendoza Referring Physician: Adalberto Grande Chi Performed By: Quynh Anthony RVT
== END ==
PROVIDERS: PCP Family Medicine Geriatric Medicine; Referring Provider Nurse Practitioner Family; Visit Provider Nurse Practitioner Family
DX: I65.23 Occlusion and stenosis of bilateral carotid arteries (principal); I73.9 Peripheral vascular disease, unspecified
CPT/HCPCS: 93880

== ENCOUNTER → 2021-05-30 11:08 | Outpatient (CLI) | payer MEDICARE, SELFPAY ==
[2021-05-30 12:23] LABS: Absolute Lymphocyte Count 1.75 X10^3/uL (0.83-4.51); Absolute Neutrophil Count 6.4 X10^3/uL (2.0-7.7); Basophil# 0.03 X10^3/uL; Basophil% 0.3 % (0-1); Eosinophil# 0.05 X10^3/uL; Eosinophils% 0.6 % (0-5); Hematocrit 52.2 % (40-54); Hemoglobin 16.9 g/dL (13.0-16.5); Lymphocyte # 1.75 X10^3/ul (0.83-4.51); Lymphocyte % 19.7 % (19-41); Mean Corp Hgb Conc 32.4 g/dL (32-36); Mean Corpuscular Hgb 32.9 pg (27.0-32.0); Mean Corpuscular Volume 101.6 fL (80-94); Mean Platelet Vol. 10.6 fl (6.2-12.0); Monocyte# 0.65 X10^3/uL; Monocyte% 7.3 % (0-10); NRBC Flagged by Analyzer 0 % (0-5); Neutrophil # 6.39 X10^3/uL (2.7-7.7); Neutrophil % 71.9 % (47-70); Platelet Count 258 K/mm3 (150-450); RBC Distribution Width CV 13.2 % (11.6-14.6); RBC Distribution Width SD 50.4 fl (35.1-43.9); Red Blood Count 5.14 M/mm3 (4.6-6.2); White Blood Count 8.9 K/mm3 (4.4-11.0)
[2021-05-30 12:36] LABS: Vitamin D,25 Hydroxy 64.3 ng/mL
[2021-05-30 12:51] LABS: ALB/GLOB Ratio 1.1 RATIO (0.9-2.4); AST(SGOT) 31 U/L (15-37); Alanine Aminotransfer ALT/SGPT 74 U/L (16-61); Albumin, Serum 3.7 g/dL (3.2-5.0); Alkaline Phosphatase 77 U/L (45-117); Anion Gap 2 (5-15); BUN 25 mg/dL (7-18); BUN/Creat Ratio 19.7 RATIO (10-20); Calcium,Total 9.3 mg/dL (8.5-10.1); Chloride 109 mmol/L (98-107); Creatinine, Serum 1.27 mg/dL (0.70-1.30); EST Glomerular Filtration Rate 58 mL/min (>60); Est Glom Filt Rate - Afr Amer 70 mL/min (>60); Globulin 3.3 g/dL (2.2-4.2); Glucose 84 mg/dL (74-106); Potassium 4.7 mmol/L (3.5-5.1); Sodium Level 141 mmol/L (136-145)
== END ==
PROVIDERS: PCP Family Medicine Geriatric Medicine; Visit Provider Family Medicine Geriatric Medicine
DX: R53.83 Other fatigue (principal); E55.9 Vitamin D deficiency, unspecified
CPT/HCPCS: 36415; 80053; 82306; 84443; 85025